=== PATIENT | male | born 1945 | race Caucasian/White ===

== ENCOUNTER 2024-11-03 08:49 | Outpatient (REF) | payer MEDICARE, SELFPAY ==
--- NOTE | ~2024-11-03 | XR_ITS ---
Exam: Three-view bilateral knee. INDICATION: Bilateral knee pain. No prior TECHNIQUE: AP, lateral, and sunrise views bilateral lower extremity joint FINDINGS: Left knee: Postoperative changes are consistent with tricompartment arthroplasty. Methacrylate stabilizes the femoral and tibial components. There is no abnormal lucency at the bone metal interfaces. There is no joint effusion. There is no periprostatic fracture. Right knee: Postoperative changes are consistent with tricompartment arthroplasty. Methacrylate stabilizes the femoral and tibial components. There is no abnormal lucency at the bone metal interfaces. There is no joint effusion. There is no periprostatic fracture. There are 2 foci of periosteal new bone formation lateral and posterior to the proximal diaphysis of the fibula Vascular calcification is evident in the proximal popliteal artery. XR/XR Knee Hubert 3V IMPRESSION: Unremarkable left knee status post 3 compartment knee arthroplasty. There are 2 areas of periosteal new bone formation along the posterior and lateral proximal diaphysis of the right fibula. This could be related to a stress fracture. Underlying aggressive lesion or less likely infection cannot be ruled out. Consider MRI or CT of the proximal lower leg for further characterization. Right knee 3 compartment arthroplasty without hardware abnormality. Electronically signed by: Trav Us MD 11/03/2024 12:55 PM EDT
--- OUTSIDE RECORDS SUMMARY | 2024-11-04 09:08 | XMS_ITS ---
Author Name [facility] Organization Unknown Encounters Encounter Type Encounter Reason Primary Diagnosis Location Date Ambulatory [facility] [place] 09/27/2022
== END 2024-11-03 08:50 | disposition home or self-care (01) ==
LOC: HO.HOSX 08:49
PROVIDERS: Visit Provider Orthopaedic Surgery
DX: M25.561 Pain in right knee (principal); M25.562 Pain in left knee
CPT/HCPCS: 73562; 99212

== ENCOUNTER 2024-11-03 10:54 | Outpatient (AMB) | payer MEDICARE, SELFPAY ==
--- NOTE | 2024-11-03 11:11 | A.OFFVIS_ITS ---
Vital Signs 11/03/24 11:19 Height 6 ft 2 in Weight 265 lb BMI 34.0 Intake Visit Reasons: Bilateral total knee arthroplasties, Left hip pain Intake Note: Rio is an 79 year old male who presents with complaints of progressively worsening left hip pain. The patient describes his pain as sharp and severe in nature. Most of the pain is located with in his left groin. The patient also reports instability in his left hip. He states that he has fallen several times because his left leg has given out. He has undergone bilateral total knee replacement surgeries in the past. He reports mild intermittent discomfort in both of his knees. He denies any fevers or chills. He has tried physical therapy exercises which aggravated his pain. He has also tried Tylenol and anti-inflammatory medicines which gave him minimal relief. Allergies No Known Allergies Allergy (Verified 11/03/24 11:15) Medication List - Last Reconciled 11/03/24 by Robert Bravo MD albuterol sulfate 90 mcg/actuation inhalation allopurinol 300 mg PO DAILY atorvastatin 20 mg PO DAILY indomethacin 50 mg PO TID losartan 50 mg PO DAILY [facility] Surgical History (Updated 11/03/24 @ 11:17 by CON Gould) History of knee replacement Social History (Updated 11/03/24 @ 11:18 by CON Gould) Patient Tobacco Use Status: Never used Tobacco Current occupational status: retired Physical Exam Vital Signs: BMI result Body Mass Index 34.0 Const Other: Well-nourished well-developed very friendly male awake alert and oriented x3 in no acute distress Extrem Other: Left hip examination shows decreased range of motion when compared to his right hip, pain with range of motion, no tenderness over his bursa Bilateral knee examination shows that the surgical incisions are well healed, no erythema, range of motion from -3 degrees to 115 degrees, his patellae track well Results Reviewed Results Reviewed: X-rays of the patient's bilateral knee show total knee arthroplasties in good position with no signs of loosening, no acute bony abnormalities X-rays of the patient's left hip taken previously show mild to moderate diffuse joint space narrowing, no acute bony abnormalities Assessment & Plan Assessment & Plan (1) Left hip pain: Code(s): M25.552 - Pain in left hip Category: Medical Plan Mr. 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 Thus, I will send the patient for an MRI of his left hip for further evaluation. I will see him back once the MRI is completed to discuss the findings and treatment options. Feel free to call me at any time should questions regarding his orthopedic management arise. Thank you very much for asking me to see this very friendly gentleman. I spent 20 minutes in reviewing the patient's records and imaging studies, seeing the patient and documenting in the medical record. Orders: Orders XR Knee Hubert 3V 11/03/24 M25.561 - Pain in right knee, M25.562 - Pain in left knee MR hip LT wo con 11/03/24 M25.552 - Pain in left hip Medications: New lorazepam (Ativan) Take one tab 2 hours before your MRI; take the second tab 30 minutes before your MRI. 1 mg PO ONCE 2 tabs 0RF anxiety Coding Level of Care Code Est Pt Level 3 (71783) Complex EM visit Add On G2211 Diagnoses Left hip pain M25.552
[2024-11-03 11:19] VITALS: BMI 34.0
--- OUTSIDE RECORDS SUMMARY | 2024-11-03 12:34 | XMS_ITS | Encounter Summary ---
Author Organization [facility] Address [address] [place] [address] Care Team Providers Care Hand Riveter Name Role Phone Manohar Zaragoza Primary Care Provider [phone] Encounter Details Date Type Department Care Team (Late Contact Info) Description 07/29/2024 Lab Requisition [facility] - Main Lab 299 [facility] [place] [phone] Francisco Wilson MD 100 [facility] 120 [place] [address] Benign essential microscopic hematuria Social History Tobacco Use Types Packs/Day Years Used Date Smoking Tobacco: Former Cigarettes Q uit: 06/03/1981 Smokeless Tobacco: Never Alcohol Use Standard Drinks/Week Comments Yes 0 (1 standard drink = 0.6 oz pur e alcohol) Sex and Gender Information Value Date Recorded Sex Assigned at Male 07/02/2024 10:45 AM EST Legal Sex Male 5:52 AM EST Gender Identity Male 07/02/2024 10:45 AM EST Sexual Orientation Not on file documented as of this encounter Plan of Treatment Upcoming Encounters Date Type Department Care Team (Late Contact Info) Description 11/04/2024 11:00 AM EDT Ancillary Procedure [facility] - [facility] 101 [address] [facility] 101 [place] [phone] 11/16/2024 1:15 PM EDT Office Visit Orthopedic Surgery - [place] 250 175 [facility] 250 [place] [phone] Michelet Stevenson, DPM [address] [facility] [address] [place] [address] 12/01/2024 11:00 AM EDT Office Visit Adult Medicine [facility] [address] [place], [place] [phone] Rosa Maria Lauren PA [address] [place], [place] documented as of this encounter Procedures Procedure Name Priority Date/Time Associated Diagnosis Comments AP OUTSIDE CONSULT Routine 07/28/2024 12 :00 AM EST Benign essential microscopic hematuria documented in this encounter Results * Anatomic pathology outside consult (07/28/2024 12:00 AM EST) Final Diagnosis A. Urine, Voided, ([id number]): Negative for high grade urothelial carcinoma. 08/06/2024 4:46 PM [facility] Clinical Information Benign essential microscopic hematuria R31.1 Urine cytology with reflex [facility]ion ([facility]) 08/06/2024 4:46 PM [facility] Gross Description A. Urine, Voided, ([id number]): Received is one ThinPrep slide for cytology. 08/06/2024 4:46 PM [facility] Disclaimer Unless otherwise specified, all tissue is 10% NB formalin fixed and paraffin embedded. Technical pathology services provided by [facility]rology at [address], [place] [address] (CLIA #[id number]/Sa zac Begum MD, Delivery Assistant) 08/06/2024 4:46 PM [facility] Tissue Urine specimen from urethra / Unknown 07/28/2024 07/29/2024 1:30 PM EST us Francisco Wilson MD LAB PATHOLOGY ORDERABLES Fi nal Result [facility] ([facility]) [facility] [address] [place] [address], documented in this encounter Visit Diagnoses Diagnosis Benign essential microscopic hematuria documented in this encounter Care Teams Hand Riveter Relationship Specialty Start Date End Date Manohar Zaragoza PA [address] [place] [address] PCP - General Internal Medicine 07/31/24 documented as of this encounter
== END 2024-11-03 11:44 | disposition home or self-care (01) ==
LOC: HO.HOS 10:58
PROVIDERS: PCP Physician Assistant Medical; Visit Provider Orthopaedic Surgery
DX: M25.552 Pain in left hip (principal)
CPT/HCPCS: 99213; G2211

== ENCOUNTER → 2024-11-03 10:59 | Outpatient (BNV) | payer MEDICARE, SELFPAY | PROVIDERS: Visit Provider Radiology Diagnostic Radiology | DX: M25.561 Pain in right knee (principal); M25.562 Pain in left knee; Z96.651 Presence of right artificial knee joint | CPT/HCPCS: 73562 ==

== ENCOUNTER 2024-11-25 12:55 | Outpatient (AMB) | payer MEDICARE, SELFPAY ==
--- NOTE | 2024-11-25 13:03 | MHC.OFFVIS ---
Intake Visit Reasons: OV-Lt hip MRI review, Low back pain radiating to left leg Intake Note: Rio is an 79 year old male who presents with complaints of progressively worsening low back pain which radiates down his left leg as well as intermittent left hip pain. The patient states that his symptoms have gotten worse over the last year. He also reports intermittent weakness in his left leg. He states that he has fallen on several occasions because of the weakness. He has done physical therapy exercises which aggravated his pain. He has also tried Tylenol and anti-inflammatory medicines which gave him minimal relief. Allergies No Known Allergies Allergy (Verified 11/25/24 13:05) Medication List - Last Reconciled 11/25/24 by Robert Bravo MD albuterol sulfate 90 mcg/actuation inhalation allopurinol 300 mg PO DAILY atorvastatin 20 mg PO DAILY indomethacin 50 mg PO TID lorazepam (Ativan) 1 mg PO ONCE losartan 50 mg PO DAILY [facility] Surgical History History of knee replacement Social History (Updated 11/03/24 @ 11:18 by CON Gould) Patient Tobacco Use Status: Never used Tobacco Current occupational status: retired Physical Exam Back/Spine/Pelvis Other: Low back examination shows left-sided paraspinal muscle tenderness, pain with range of motion, positive straight leg raise test on the left at 70 degrees, 4/5 strength with testing of his left hip flexors and knee extensors when compared to 5/5 strength on his right side Extrem Other: Left hip examination shows slightly decreased range of motion when compared to his right hip, mild tenderness over his bursa, no overlying skin lesions Results Reviewed Results Reviewed: X-rays of the patient's lumbar spine taken previously show diffuse degenerative disc disease, no acute bony abnormalities MRI of the patient's left hip shows mild degenerative changes, no evidence of avascular necrosis, no acute bony abnormalities Assessment & Plan Assessment & Plan (1) Low back pain radiating to left leg: Code(s): M54.50 - Low back pain, unspecified; M79.605 - Pain in left leg Category: Medical Plan Mr. Meraz presents with progressively worsening low back pain which radiates down his left leg as well as associated left leg weakness possibly due to lumbar stenosis or a disc herniation. Thus, I will send the patient for an MRI of his lumbar spine for further evaluation. I will contact him by phone once the MRI results are available. He will call me prior to that time should his symptoms worsen in any way. Feel free to call me at time should questions regarding his orthopedic management arise. I spent 21 minutes in reviewing the patient's records and imaging studies, seeing the patient and documenting in the medical record. Orders: Orders MR lumbar spine wo con Today M54.50 - Low back pain, unspecified, M79.605 - Pain in left leg Coding Level of Care Code Est Pt Level 3 (07089) Complex EM visit Add On G2211 Diagnoses Low back pain radiating to left leg M54.50; M79.605
--- OUTSIDE RECORDS SUMMARY | 2024-11-25 15:04 | XMS_ITS | Encounter Summary ---
Author Organization [facility] Address [address] [place] [address] Care Team Providers Care Franchise Field Consultant Name Role Phone Manohar Zaragoza Primary Care Provider [phone] Encounter Details Date Type Department Care Team (Late st Contact Info) Description 07/29/[address] [facility] - Main Lab [address] [facility] [place] [phone] Francisco Wilson MD [address] [place] [address] Benign essential microscopic hematuria Social History Tobacco [...] Department Care Team (Late Contact Info) Description 12/01/2024 11:00 AM EDT Office Visit Adult Medicine [address] [phone] Rosa Maria Lauren PA [address] [place], [place] 12/23/2024 2:15 PM EDT Office Visit Orthopedic Surgery - [place] 250 175 [facility] [address] [place] [phone] Michelet Stevenson, DPM 175 [facility] 250 [place] [address] 11/01/2025 11:00 AM EDT Ancillary Procedure [facility] - [facility] [address] [place] [phone] documented as of this encounter Procedures Procedure Name Priority Date/Time Associated Diagnosis Comments AP OUTSIDE CONSULT Routine 07/28/2024 12 :00 AM EST Benign essential microscopic hematuria documented in this encounter Results * Anatomic pathology outside consult (07/28/2024 12:00 AM EST) Final Diagnosis A. Urine, Voided, ([id number]): Negative for high grade urothelial carcinoma. 08/06/2024 4:46 PM [facility] Clinical Information Benign essential microscopic hematuria R31.1 Urine cytology with reflex UroVysion ([facility]) 08/06/2024 4:46 PM [facility] Gross Description A. Urine, Voided, ([id number]): Received is one ThinPrep slide for cytology. 08/06/2024 4:46 PM [facility] Disclaimer Unless otherwise specified, all tissue is 10% NB formalin fixed and paraffin embedded. Technical pathology services provided by [facility] at [address], [place] [address] (CLIA #[id number]/Sa zac Begum MD, Seismic Plotter) 08/06/2024 4:46 PM [facility] Tissue Urine specimen from urethra / Unknown 07/28/2024 07/29/2024 1:30 PM EST us Francisco Wilson MD LAB PATHOLOGY ORDERABLES Fi nal Result [facility] ([facility]) [facility] [address] [place] [address], documented in this encounter Visit Diagnoses Diagnosis Benign essential microscopic hematuria documented in this encounter Care Teams Franchise Field Consultant Relationship Specialty Start Date End Date Manohar Zaragoza PA [address] [place] [address] PCP - General Internal Medicine 07/31/24 documented as of this encounter
== END 2024-11-25 13:16 | disposition home or self-care (01) ==
LOC: HO.HOS 12:56
PROVIDERS: Visit Provider Orthopaedic Surgery
DX: M54.50 Low back pain, unspecified (principal); M79.605 Pain in left leg
CPT/HCPCS: 99213; G2211

== ENCOUNTER → 2024-11-25 12:55 | Outpatient (BNVA) | payer MEDICARE, SELFPAY | PROVIDERS: Visit Provider Orthopaedic Surgery | DX: M79.605 Pain in left leg (principal); M54.50 Low back pain, unspecified | CPT/HCPCS: 99212 ==

== ENCOUNTER 2024-12-31 09:31 | Outpatient (AMB) | payer MEDICARE, SELFPAY ==
--- NOTE | 2024-12-31 09:37 | A.OFFVIS_ITS ---
Intake Visit Reasons: OV- Lumbar Spine MRI review Intake Note: Rio is an 79 year old male who presents with complaints of progressively worsening low back pain which radiates down his left leg as well as intermittent left hip pain. The patient states that his symptoms have gotten worse over the last year. He also reports intermittent weakness in his left leg. He states that he has fallen on several occasions because of the weakness. He has done physical therapy exercises which aggravated his pain. He has also tried Tylenol and anti-inflammatory medicines which gave him minimal relief. The patient states that he has only mild discomfort at rest. The patient's states that he appears to lose his balance when he is walking. The patient's also states that he reports severe pain in his low back after activities such as mowing the lawn. Inspector Mechanical Required: No Accompanied by: Spouse Allergies No Known Allergies Allergy (Verified 12/31/24 09:42) Medication List - Last Reconciled 12/31/24 by Francesca Landon RN albuterol sulfate 90 mcg/actuation inhalation allopurinol 300 mg PO DAILY atorvastatin 20 mg PO DAILY indomethacin 50 mg PO TID lorazepam (Ativan) 1 mg PO ONCE losartan 50 mg PO DAILY [facility] Surgical History History of knee replacement Social History (Updated 11/03/24 @ 11:18 by CON Gould) Patient Tobacco Use Status: Never used Tobacco Current occupational status: retired Physical Exam Back/Spine/Pelvis Other: Low back examination shows left-sided paraspinal muscle tenderness, pain with range of motion, positive straight leg raise test on the left at 70 degrees Results Reviewed Results Reviewed: MRI of the patient's lumbar spine shows ?severe L3-4, L4-5 spinal stenosis due to bulging discs, ligamentous hypertrophy and facet overgrowth MRI of the patient's left hip taken previously shows mild diffuse degenerative changes, no acute bony abnormalities Assessment & Plan Assessment & Plan (1) Low back pain radiating to left leg: Code(s): M54.50 - Low back pain, unspecified; M79.605 - Pain in left leg Category: Medical Plan Mr. Meraz presents with progressively worsening low back pain which radiates into his left leg due to lumbar stenosis. He also has left hip pain but his left hip MRI shows only mild degenerative changes. I do not feel that hip surgery is indicated. Most of the patient's symptoms including his weakness and recent falls are most likely due to lumbar spine pathology. Thus, I will have the patient evaluated in our neurosurgery department. He will contact me prior to that appointment should his symptoms worsen in any way. I spent 22 minutes in reviewing the patient's records and imaging studies, seeing the patient and documenting in the medical record. Orders: Referrals Neuro Spine Referral M54.50 - Low back pain, unspecified, M79.605 - Pain in left leg Coding Level of Care Code Est Pt Level 3 (64290) Complex EM visit Add On G2211 Diagnoses Low back pain radiating to left leg M54.50; M79.605
--- OUTSIDE RECORDS SUMMARY | 2024-12-31 09:54 | XMS_ITS | Clinical Summary ---
Author Organization [facility] Address [address] [place] [address] Care Team Providers Care Substance Abuse Rn Name Role Phone Tammie Crystal MD Primary Care Provider [phone] Allergies No known active allergies Medications Medication Sig Dispensed Refills Start Date End Date Status allopurinol (ZYLOPRIM) 300 MG tablet Take 300 mg by mouth daily. 3 04/03/2019 Active atorvastatin (LIPITOR) tablet 20 mg TAKE 1 TABLET BY MOUTH EVERY DAY 0 04/06/2019 Active metoprolol succinate (TOPROL-XL) 24 hr tablet 25 mg Take 25 mg by mouth daily. 11 04/03/2019 Active Multiple Vitamins-Minerals (CENTRUM SILVER 50+MEN PO) Take by mouth. 0 Active Misc Natural Products (OSTEO BI-FLEX JOINT SHIELD PO) Take by mouth. 0 Active Fluticasone Furoate (ARNUITY ELLIPTA) 100 MCG/ACT AEPB Inhale 1 puff into the lungs. 0 08/14/2019 Active enoxaparin (LOVENOX) 40 MG/0.4ML SOLN Inject 0.4 mL (40 mg total) under the skin daily. 7 Syringe 1 11/30/2019 Active celecoxib (CeleBREX) 200 MG capsule Take 1 capsule (200 mg total) by mouth daily. 30 capsule 1 12/11/2019 Active albuterol (PROVENTIL HFA;VENTOLIN HFA) 108 (90 Base) MCG/ACT inhaler Inhale 2 puffs into the lungs. 0 08/14/2019 Active enoxaparin (Lovenox) 40 MG/0.4ML SOLN Inject 0.4 ml (40 mg) each morning until told to stop by surgeon 14 Syringe 1 05/10/2020 Active oxyCODONE-acetamin ophen (Percocet) 5-325 MG per tablet Take 1-2 tabs p.o. every 4 to 6 hours as needed for pain. May fill for lesser quantity. 30 tablet 0 06/14/2020 Active sulfamethoxazole-t rimethoprim (Bactrim DS) 800-160 MG per tablet Take 1 tab 2 times daily for 10 days 20 tablet 0 07/08/2020 Active atorvastatin (LIPITOR) tablet 20 mg Take 20 mg by mouth. 0 07/20/2020 Active amoxicillin (AMOXIL) 500 MG tablet Take 4 tabs 1 hour prior to dental appointment 20 tablet 3 06/30/2021 Active Acetaminophen Extra Strength 500 MG tablet TAKE 1 TABLET BY MOUTH THREE TIMES A DAY FOR PAIN 0 09/07/2021 Active aspirin 81 MG EC tablet Take 81 mg by mouth. 0 Active indomethacin (INDOCIN) 50 MG capsule Take 50 mg by mouth. 0 08/23/2021 Active Active Problems Problem Noted Date Diagnosed Date Arthritis of knee, right 04/15/2019 Arthritis of knee, left 04/15/2019 Resolved Problems Problem Noted Date Diagnosed Date Resolved Date Cellulitis of right knee 07/08/202005/2021 Family History Medical History Relation Name Comments Cancer Father Cancer Sister Relation Name Status Comments Father Sister Social History Tobacco Use Types Packs/Day Years Used Date Smoking Tobacco: Former Smokeless Tobacco: Never Alcohol Use Standard Drinks/Week Comments Yes 2 (1 standard drink = 0.6 oz pur e alcohol) Sex and Gender Information Value Date Recorded Sex Assigned at Not on file Gender Identity Not on file Sexual Orientation Not on file Job Start Date Occupation Industry Not on file Not on file Not on file Last Filed Vital Signs Vital Sign Reading Time Taken Comments Blood Pressure - - Pulse - - Temperature - - Respiratory Rate - - Oxygen Saturation - - Inhaled Oxygen Concentration - - Weight 117 kg (258 lb) 11/12/2019 10:00 AM EDT Height 182.9 cm (6') 11/12/2019 10:00 AM EDT Body Mass Index 34.99 11/12/2019 10:00 AM EDT Plan of Treatment Health Maintenance Due Date Last Done Comments Depression Screening 1957 BMI Counseling 10/21/1961 Preventative Health Evaluation 10/21/1961 DTap / Tdap / Td (1 - Tdap) 10/21/1962 Shingrix-Zoster Vaccine (1 of 2) 10/21/1993 Fall Risk Assessment 10/21/2008 RSV Adult > 60+ Yrs or (1 - 1-dose 75+ series) 10/21/2018 COVID-19 Vaccine ( season) 2024 04/24/2021, 09/16/2020, 08/24/2020 Influenza Vaccine (#1) 2025 , 02/22/2020, 03/17/2019, Additional history exists Pneumococcal Vaccine Completed 03/05/2016, 04/22/20 13 Hepatitis B Vaccines Aged Out No long er eligible based on patient's age to complete this topic RSV Ped < 20 months Aged Out No longe r eligible based on patient's age to complete this topic Care Teams Substance Abuse Rn Relationship Specialty Start Date End Date Tammie Crystal MD [address] [place] [address] PCP - General Internal Medicine 06/15/21
--- OUTSIDE RECORDS SUMMARY | 2024-12-31 09:54 | XMS_ITS ---
Author Name [facility] Organization Unknown Encounters Encounter Type Encounter Reason Primary Diagnosis Location Date Ambulatory [facility] [place] 09/27/2022 Care Team Organization Name Specialty Phone Email Start Date End Da te [facility] Manohar Zaragoza Primary Care 08/08/2022 [facility] Jorge Benavides Primary Care 04/10/202201/01
--- OUTSIDE RECORDS SUMMARY | 2024-12-31 09:54 | XMS_ITS | Clinical Summary ---
Author Organization [address] [place] [address] [place] [phone] Phone Care Team Providers Care [employer]orer [employer] Name Role Phone Manohar Zaragoza Primary Care Provider [phone] Allergies No known active allergies Medications amoxicillin (AMOXIL) 500 mg capsule TAKE 4 TABLETS 1 HOURS PRIOR TO APPOINTMENT 4 Active aspirin 81 mg EC tablet Take 1 tablet (81 mg total) by mouth 1 (one) time each day. Active glucosamine/víctor dr shanika Gordon sod (OSTEO BI-FLEX ORAL) Take 1 Tablet by mouth daily Active albuterol HFA (PROAIR HFA ; PROVENTIL HFA ; VENTOLIN HFA) 90 mcg/actuation inhaler INHALE 2 PUFFS INTO THE LUNGS EVERY 6 HOURS NEEDED FOR COUGH OR WHEEZING. 18 each 5 Active indomethacin (INDOCIN) 50 mg capsule Take 1 capsule (50 mg total) by mouth 3 (three) times a day with meals. 90 capsule 3 5 Active losartan (Cozaar) 50 mg tablet Take 1 tablet (50 mg total) by mouth 1 (one) time each day. 30 each 5 Active cholecalciferol (VITAMIN D-3) 25 mcg (1,000 unit) tablet Take 1 tablet (1,000 Units total) by mouth 1 (one) time each day. Active allopurinoL (ZYLOPRIM) 300 mg tablet TAKE 1 TABLET BY MOUTH 1 TIME EACH DAY. 90 tablet 1 5 Active atorvastatin (LIPITOR) 20 mg tabletIndication s:Gout, unspecified,Hype rlipidemia, unspecified TAKE 1 TABLET BY MOUTH EVERY DAY 90 tablet 3 5 Active Active Problems Problem Noted Date Diagnosed Date Acquired hallux valgus of right foot 12/23/2024 Hallux rigidus of right foot 12/23/2024 Primary hypertension 07/31/2024 Status post bilateral knee replacements 10/05/19 23 Right carpal tunnel syndrome 06/20/2021 Trigger finger, right ring finger 06/20/2021 Basal cell carcinoma (BCC) o f skin of left eyelid including canthus 05/23/2020 Asthma 07/24/2019 Aortic aneurysm, thoracic (CMS/HCC V24) 05/08/20 19 Frequent PVCs 05/08/2019 Arthritis of knee, left 04/15/2019 Arthritis of knee, right 04/15/2019 Elevated LFTs 04/06/2019 Primary osteoarthritis of both knees 04/24/2017 Actinic keratoses 04/11/2017 Overview (04/24/2024): Actinic keratoses 04/19 right earlobe ... nose (atypical squamous proliferation) Lumbar radiculopathy 03/05/2016 Diverticulitis of colon without hemorrhage 08/29 Overview (04/24/2024): Incidental finding at colonoscopy 08/30/2011. Hyperlipidemia 09/17/2010 Tinnitus 09/15/2010 Rosacea 03/02/2010 Gout 04/22/2006 Overview (04/24/2024): On allopurinol since ~ 2009 Encounters Date Type Department Care Team Description 12/23/2024 2:15 PM EDT Office Visit [facility] [place] [address] [place] [phone] Michelet Stevenson, DPM Acquired hallux valgus of right foot (Primary Dx); Follow-up exam; Hallux rigidus of right foot 12/01/2024 11:15 AM EDT - 12/01/2024 11:59 PM EDT Hospital Encounter Radiology Department [address] [phone] Right leg pain Discharge Disposition: Home or Self Care 12/01/2024 11:00 AM EDT Office Visit Adult Medicine [facility] [address] [place] [phone] Rosa Maria Lauren PA Mild persistent asthma without complication (Primary Dx); Right leg pain; Thrombophlebitis of superficial veins of right lower extremity 11/16/2024 1:15 PM EDT Office Visit [facility] - [place] 250 175 [facility] [address] [place] [phone] Michelet Stevenson, DPM Acquired hallux valgus of right foot (Primary Dx); [place] of foot; Hallux rigidus of right foot 11/04/2024 11:00 AM EDT Ancillary Procedure [facility] 101 [address] [facility] 101 [place] [phone] Thoracic aortic aneurysm without rupture, unspecified part ([facility] V24) from Last 3 Months Immunizations Name Administration Dates Next Due Influenza trivalent, 0.5mL ( Fluad) 65yo and older 03/11/2023,02/27/2022,02/22/2021,02/21,03/17/2019,02/25/2018,03/10/2017 ,03/05/2016 Influenza trivalent, 0.5mL, preservative free (Fluarix; FluLaval; Fluzone) ages 6mo and older (Afluria) 3 years and older 03/06/2015,03/19/2014,03/11/2013,05/07,07/03/2011 ebindle SARS-CoV-2 COVID-19, mRNA, LNP-S, preservative free 04/24/2021,09/16/2020,08/24/2020 Pneumococcal conjugate 13 va lent (Prevnar 13, PCV13) 2mo and older 03/05/2016 Pneumococcal polysaccharide 23 valent (Pneumovax 23) 2yo and older 04/22/2013 Td Tetanus diptheria (Tdvax) 7yo and older 04/22/2013 Zoster Live 03/11/2013 Surgical History Surgery Date Site/Laterality Comments PROSTATECTOMY 2002 PROCEDURE: PROSTATECTOMY; COMMENT: prostate cancer COLONOSCOPY 10/15/2000 PROCEDURE: VA COLONOSCOPY STOMA DX INCLUDING COLLJ SPEC SPX; COMMENT: normal ESOPHAGOGASTRODUODENOSCOPY 02/22/2003 PROCEDURE: VA ESOPHAGOGASTRODUODENOSCOPY TRANSORAL DIAGNOSTIC; COMMENT: normal COLONOSCOPY 08/30/2011 PROCEDURE: VA COLONOSCOPY FLX DX W/COLLJ SPEC WHEN PFRMD; COMMENT: minimal diverticulosis TONSILLECTOMY PROCEDURE: HISTORICAL TONSILLECTOMY CATARACT EXTRACTION PROCEDURE: HISTORICAL CATARACT REMOVAL OTHER SURGICAL HISTORY PROCEDURE: HISTORY OTHER; COMMENT: eye lid surgery TOTAL KNEE ARTHROPLASTY 11/2019 Bilateral PROCEDURE: VA ARTHRP KNE CONDYLE&PLATU MEDIAL&LAT COMPARTMENTS; COMMENT: left TKR - dr. gallo OTHER SURGICAL HISTORY PROCEDURE: HISTORICAL CA BASAL CELL; COMMENT: BCC 04/22 nose (nodular) Medical History Medical History Date Comments Gout, unspecified 04/22/2006 DX:Gout, unspe cified Hyperlipidemia 09/17/2010 DX:Hyperlipidemi a Diverticulosis of colon (wit hout mention of hemorrhage) 08/30/2011 DX:Diverticulosis of colon ( without mention of hemorrhage) History of prostate cancer 08/21/2007 DX:Hi story of prostate cancer; COMMENT: Total prostatectomy approx 2002 Actinic keratoses 04/11/2017 DX:Actinic ker atoses History of basal cell carcinoma 04/14/2020 DX:History of basal cell carcinoma; COMMENT: BCC 04/22 nose (nodular) Essential hypertension DX:Essent ial hypertension Family History Medical History Relation Name Comments Arthritis Brother Arthritis Father gout Colon cancer Father rectal cancer d ied 75 Other: old age Mother 90 Coronary artery disease Neg Hx Diabetes Neg Hx Hypertension Neg Hx Relation Name Status Comments Brother ? aneurysm Father (Age 75) ? rectal c ancer Mother (Age 90's) Sister breast cancer Social History Tobacco Use Types Packs/Day Years Used Date Smoking Tobacco: Former Cigarettes Q uit: 06/03/1981 Smokeless Tobacco: Never Alcohol Use Standard Drinks/Week Comments Yes 0 (1 standard drink = 0.6 oz pur e alcohol) Housing Instability Answer Date Recorde d Are you worried that in the next 2 months you may not have stable housing? No 08/28/2024 Food Access & Nutrition Answer Date Rec orded Do you have access to a vari ety of food including fruits and vegetables? No 08/28/2024 Access to Healthcare Answer Date Record ed Within the last 3 months, ho w many times did you visit the emergency department for your medical care? 0 08/28/2024 Health Literacy Answer Date Recorded How often do you need to hav e someone help you when you read instructions, pamphlets, or other written material from your doctor or pharmacy? Never 08/28/2024 Caregiver: How often do you need to have someone help you when you read instructions, pamphlets, or other written material from your doctor or pharmacy? Not on file 08/28/2024 Financial Risk Answer Date Recorded How hard is it for you to pa y for the very basics like food, housing, medical care, and air conditioning / heating? Not very hard 08/28/2024 Transportation Answer Date Recorded Has the lack of transportati on kept you from meetings, work, or from getting things needed for daily living? No Has the lack of transportati on kept you from medical appointments or from getting medications? No 08/28/2024 Social Isolation Answer Date Recorded How often do you feel lonely or isolated from th ose around you? Never 08/28/2024 Food Risk Answer Date Recorded Within the past 12 months we worried whether our food would run out before we got money to buy more. Never true 08/28/2024 Within the past 12 months th e food we bought just didn't last and we didn't have money to get more. Never true 08/28/2024 Dependent Care Answer Date Recorded Do you need help finding or paying for care for your loved ones. For example, childcare attendant or elderly care for an older adult? No 08/28/2024 Education Answer Date Recorded Do you think completing more education or training, like finishing a GED, going to college, or learning a trade, would be helpful for you? No 08/28/2024 Employment and Income Answer Date Recor ded During the last four weeks, have you been actively looking for work? No 08/28/2024 Living Situation Answer Date Recorded What is your living situation? 0 08/28/2024 Sex and Gender Information Value Date Recorded Sex Assigned at Male 07/02/2024 10:45 AM EST Legal Sex Male 5:52 AM EST Gender Identity Male 07/02/2024 10:45 AM EST Sexual Orientation Not on file Obstetrics History Last Filed Vital Signs Vital Sign Reading Time Taken Comments Blood Pressure 127/78 12/01/2024 10:52 AM EDT Pulse 60 12/01/2024 10:52 AM EDT Temperature 36.6 C (97.8 F) 12/01/2024 10:52 AM EDT Respiratory Rate 14 12/01/2024 10:52 AM EDT Oxygen Saturation 96% 12/01/2024 10:52 AM EDT Inhaled Oxygen Concentration - - Weight 114 kg (251 lb) 12/23/2024 2:17 PM EDT Height 188 cm (6' 2.02 ) 12/23/2024 2:17 PM EDT Body Mass Index 32.21 12/23/2024 2:17 PM EDT Plan of Treatment Upcoming Encounters Date Type Department Care Team (Late st Contact Info) Description 02/22/2025 10:00 AM EDT Consult Adult Medicine [facility] [address] [place] [phone] Manohar Zaragoza PA [address] [place] [address] 03/01/2025 8:00 AM EDT Consult Orthopedic Surgery [place] [address] [phone] Michelet Stevenson DPM [address] [address] 03/05/2025 10:00 AM EDT Hospital Encounter [facility] OR [address] [place] [phone] Michelet Stevenson DPM [address] [address] 03/05/2025 10:00 AM EDT - 03/05/2025 12:00 PM EDT Surgery [facility] OR [address] [place] [phone] Michelet Stevenson DPM [address] [address] RIGHT BUNIONECTOMY [94911 (CPT )] 03/18/2025 8:45 AM EDT Office Visit [facility] Surgery - [place] 250 175 [facility] [address] [place] [phone] Michelet Stevenson, DPM 175 [facility] [address] [place] [address] 11/01/2025 11:00 AM EDT Ancillary Procedure [facility] 101 [address] [facility] 101 [place] [phone] Scheduled Procedures Name Priority Associated Diagnoses Date/Ti me BUNIONECTOMY Acquired hallux valgus of right foot Hallux rigidus of right foot 03/05/2025 10:00 AM EDT Health Maintenance Due Date Last Done Comments Zoster Vaccines (1 of 2) 05/06/2013 03/11/2013 RSV Immunization Adult Patients (1 - 1-dose 75+ series) 10/21/2018 Medicare Annual Wellness Visit 05/10/2022 DTaP,Tdap,and Td Vaccines (2 - Td or Tdap) 04/22/2023 04/22/2013 COVID-19 Vaccine ( season) 2024 03/11/2023, 02/27/2022, 04/24/2021, Additional history exists Hypertension/CHF/CAD Annual BMP Blood Test 08/10/2025 08/10/2024, 10/31/2023, 10/31/2023 Falls Risk Assessment 08/28/2025 08/28/2024 Social Influencers of Health Screening 08/28/2025 08/28/2024 Cholesterol Screening (Lipid Panel) 08/10/2029 08/10/2024, 10/31/2023, 10/31/2023 Pneumococcal Vaccine: 50+ Years Completed 03/05/2016, 04/22/2013 Influenza Vaccine Discontinued 03/11/2023, , 02/22/2021, Additional history exists Depression Screening Completed 08/28/2024 HIB Vaccines Aged Out No longer eligi ble based on patient's age to complete this topic HPV Vaccines Aged Out No longer eligi ble based on patient's age to complete this topic Hepatitis A Vaccines Aged Out No long er eligible based on patient's age to complete this topic Hepatitis B Vaccines Aged Out No long er eligible based on patient's age to complete this topic IPV Vaccines Aged Out No longer eligi ble based on patient's age to complete this topic MMR Vaccines Aged Out No longer eligi ble based on patient's age to complete this topic Meningococcal ACWY Vaccine Aged Out N o longer eligible based on patient's age to complete this topic Meningococcal B Vaccine Aged Out No l onger eligible based on patient's age to complete this topic RSV Immunization Patients Under 20 months Aged Out No longer eligible based on patient's age to complete this topic Varicella Vaccines Aged Out No longer eligible based on patient's age to complete this topic Procedures Procedure Name Priority Date/Time Associated Diagnosis Comments XR FOOT 3+ VIEWS RIGHT Routine 2:47 PM EDT Follow-up exam VAS US DUPLEX LOWER EXT VENOUS RIGHT STAT 12/01/2024 11:45 AM EDT Right leg pain INJECTION TENDON OR LIGAMENT Routine 11/16/2024 1:15 PM EDT Acquired hallux valgus of right foot Hallux rigidus of right foot TRANSTHORACIC ECHOCARDIOGRAM (TTE) COMPLETE W/ BUBBLE STUDY Routine 11/04/2024 11:45 AM EDT Thoracic aortic aneurysm without rupture, unspecified part ([facility] V24) COMPREHENSIVE METABOLIC PANEL Routine 08/10/2024 9:00 AM EDT Wheeze Aneurysm of ascending aorta without rupture ([facility] V24) Uncomplicated asthma, unspecified asthma severity, unspecified whether persistent Other hyperlipidemia Gout, unspecified cause, unspecified chronicity, unspecified site LIPID PANEL WITH REFLEX TO DIRECT LDL Routine 08/10/2024 9:00 AM EDT Wheeze Aneurysm of ascending aorta without rupture ([facility] V24) Uncomplicated asthma, unspecified asthma severity, unspecified whether persistent Other hyperlipidemia Gout, unspecified cause, unspecified chronicity, unspecified site from Last 3 Months or Most Recently Relevant to Health Maintenance Results * XR Foot 3+ Views Right (12/23/2024 2:47 PM EDT) Anatomical Region Laterality Modality Lower Extremities, Foot Right Computed Radiography Narrative 12/23/2024 5:22 PM EDT Right foot 3 views No fracture. No radiopaque foreign joint spaces Arthritis mild moderate mild bunion deformity with increased medial eminence Foot position Pes planus with Talus navicular uncovering decreased calcaneal inclination anterior displaced symes line talus navicular joint to calcaneal cuboid joint us Michelet Stevenson DPSherry IMG XR PROCEDURES Final R esult * Vascular US duplex lower extremity venous right (12/01/2024 11:45 AM EDT) Anatomical Region Laterality Modality Vascular, Abdomen Ultrasound 12/01/2024 12:0 0 PM EDT Impressions 12/01/2024 12:02 PM EDT 1. No deep venous thrombosis in the right femoropopliteal system. 4. Superficial thrombophlebitis of the upper calf -------- FINAL REPORT -------- Dictated By: Clay Blue Dictated Date: 12/01/2024 12:00 ET Assigned Physician: Clay Blue Reviewed and Electronically Signed By: Clay Blue Signed Date: 12/01/2024 12:02 ET Workstation ID: [id number] Transcribed By: Self Edit Transcribed Date: 12/01/2024 12:00 ET Narrative 12/01/2024 12:02 PM EDT EXAM: Venous Doppler unilateral, right INDICATIONS: Pain TECHNIQUE: Duplex venous evaluation of the lower extremity was performed utilizing graded compression, color and spectral Doppler interrogation. COMPARISON: None FINDINGS: There is normal morphology, compressibility, Doppler flow, and augmentation of the right common femoral, superficial femoral, and popliteal veins. The posterior tibial vein demonstrates patency. Peroneal vein demonstrates color flow There is hypoechoic noncompressible thrombus within the superficial vein of the upper calf. Procedure Note Clay Blue MD - 12/01/2024 EXAM: Venous Doppler unilateral, right INDICATIONS: Pain TECHNIQUE: Duplex venous evaluation of the lower extremity was performedutilizing graded compression, color and spectral Doppler interrogation. COMPARISON: None FINDINGS: There is normal morphology, compressibility, Doppler flow, andaugmentation of the right common femoral, superficial femoral, andpopliteal veins. The posterior tibial vein demonstrates patency. Peronealvein demonstrates color flow There is hypoechoic noncompressible thrombus within the superficial veinof the upper calf. IMPRESSION: 1. No deep venous thrombosis in the right femoropopliteal system. 4. Superficial thrombophlebitis of the upper calf -------- FINAL REPORT -------- Dictated By: Clay Blue Dictated Date: 12/01/2024 12:00 ET Assigned Physician: Clay Blue Reviewed and Electronically Signed By: Clay Blue Signed Date: 12/01/2024 12:02 ET Workstation ID: [id number] Transcribed By: Self Edit Transcribed Date: 12/01/2024 12:00 ET us Rosa Maria Leonidas PA CV VASCULAR PROCEDURES Final Res ult * Injection tendon or ligament (11/16/2024 1:15 PM EDT) Michelet Frances DPM - 11/16/2024 1:15 PM EDT Michelet Stevenson DPM 11/16/2024 7:02 PM Injection tendon or ligament Indications: pain Details: 25 G needle Medications: 0.5 mL lidocaine (PF) 1 %; 20 mg triamcinolone acetonide 40 mg/mL Informed Consent: Site: Foot ligament tendon us Michelet Stevenson DPM IN CLINIC/BEDSIDE ORDERAB LES Final Result * (ABNORMAL) TRANSTHORACIC ECHOCARDIOGRAM (TTE) COMPLETE W/ BUBBLE STUDY (11/04/2024 11:45 AM EDT) Left Atrium Minor Rusk 5.8 cm CV PACS Left Atrium Major Rusk 5.8 cm CV PACS LA Area Sys (A2C) 22 cm2 CV PACS LA Area Sys (A4C) 21 cm2 CV PACS LA Volume (BP) 65 mL CV PACS RA Area 18.6 cm2 CV PACS RA 2D Volume 53 mL CV PACS AV Mean Gradient 10 mmHg CV PACS Ao VTI 47.0 cm CV PACS AV Peak Zackery 1.9 m/s CV PACS AV Peak Gradient 20 mmHg CV PACS AV Area Continuity Equation 2.0 cm2 CV PACS AV Area Peak Velocity 2.1 cm2 CV PACS Aortic Sinus Valsalva 3.8 cm CV PACS Ascending Aorta 4.1 cm CV PACS IVSD 1.2(A) 0.6 - 1.0 cm CV PACS LVIDD 5.3 4.2 - 5.8 cm CV PACS LVIDS 3.2 2.5 - 4.0 cm CV PACS LVOT Diameter 2.2 cm CV PACS LVOT Mean Zackery 0.7 m/s CV PACS LVOT Mean Grad 2 mmHg CV PACS LVOT Peak VTI 25.0 cm CV PACS LVOT Peak Zackery 1.2 m/s CV PACS LVOT Peak Gradient 5 mmHg CV PACS LVPWD 1.2(A) 0.6 - 1.0 cm CV PACS MV E' Tissue Velocity Lateral 7 cm/s CV PACS MV E' Tissue Velocity Septal 7 cm/s CV PACS LVOT Area 3.8 cm2 CV PACS LVOT Stroke Volume 95 mL CV PACS MV Deceleration Shannon 3.2 m/s2 CV PACS E Wave Deceleration Time 295(A) 119 - 242 ms CV PACS MV PHT 86 ms CV PACS MV Peak A Zackery 1.00 m/s CV PACS MV Peak E Zackery 0.90 m/s CV PACS MV Area PHT 2.6 cm2 CV PACS PV Acceleration Time 85 ms CV PACS PV Peak Velocity 1.2 m/s CV PACS PV Peak Gradient 5 mmHg CV PACS RV Diastolic Basal Dimension 3.9 2.5 - 4.1 cm CV PACS TAPSE 31 mm CV PACS TR Peak Velocity 2.70 m/s CV PACS TR Peak Gradient 30 mmHg CV PACS E/E' Ratio Septal 13 CV PACS E/E' Ratio Averaged 13 CV PACS LVOT Stroke Index 0 mL/m2 CV PACS Relative Wall Thickness ratio 0.45(A) 0.24 - 0.42 CV PACS LVOT:AV VTI Index 0.53 CV PACS FS 40 % CV PACS LV Mass 2D 265(A) 96 - 200 g CV PACS Ascending Aorta Index 1.70 cm/m2 CV PACS LVOT flow 266 mL/s CV PACS RA 2D Volume Index 22 18 - 32 mL/m2 CV PACS KHALIDA Index (VTI) 0.84 cm2/m2 CV PACS KHALIDA Index (Pk Zackery) 0.87 cm2/m2 CV PACS LVIDD Index 2.20 cm/m2 CV PACS LVIDS Index 1.33 cm/m2 CV PACS AV Velocity Ratio 0.50 CV PACS E/A Ratio 0.9 0.8 - 2.0 CV PACS E/E' Ratio Lateral 13 CV PACS LA Volume Index (BP) 26 mL/m2 CV PACS LV Mass Index 2D 106 50 - 102 g/m2 CV PACS BSA 2.46 m2 CV PACS RA Major Rusk 5.1 cm CV PACS RA Major Rusk Index 2.1 2.1 - 2.7 cm/m2 CV PACS AV Area 2D 1.9 cm2 CV PACS KHALIDA Index (2D) 0.79 cm2/m2 CV PACS AV Area Index 0.8 CV PACS Anatomical Region Laterality Modality Ultrasound Narrative 11/05/2024 4:26 PM EDT Left ventricle cavity size is normal. There is mild, concentric LV hypertrophy. There is normal left ventricular regional wall motion. Left ventricular systolic function is hyperdynamic with an ejection fraction over 70%. Right ventricle cavity is normal. Right ventricular systolic function is normal. There is no hemodynamically significant valve disease. Minor valvular abnormalities as below. The ascending aorta is dilated (4.1 cm). The aortic root is probably upper normal at 3.8 cm. Compared with prior echo from 10/14/2023, findings are unchanged. Ascending aorta measured 4.1 on the previous study when I remeasured it. Aortic root margins are better delineated on today's study. Left Ventricle Left ventricle cavity size is normal. There is mild hypertrophy. Systolic function is hyperdynamic with an ejection fraction over 70%. There were no obvious LV outflow or mid cavitary gradient seen on the study though a thorough investigation was not performed. There are no regional LV wall motion abnormalities. Indeterminate diastolic function. Left atrial pressure is inconclusive. Right Ventricle Right ventricle cavity appears normal. Systolic function is normal. Left Atrium Left atrium cavity size is normal. Right Atrium Right atrium cavity is mildly dilated. IVC/SVC Inferior vena cava was not well visualized. Mitral Valve The leaflets are mildly thickened. There is trace regurgitation. There is no evidence of mitral valve stenosis. Tricuspid Valve Tricuspid valve structure is normal. There is trace regurgitation. There is no evidence of tricuspid valve stenosis. The RV systolic pressure is likely normal to borderline high at 30 mmHg plus right atrial pressure. Aortic Valve The aortic valve is trileaflet. The leaflets are moderately thickened and exhibit reduced excursion. There is trace regurgitation. There is no significant stenosis. There is aortic sclerosis without stenosis. The mean gradient is 10 mmHg. The aortic valve area by continuity equation is 2.0 cm2. Pulmonic Valve Visualized portions of the pulmonic valve appear normal. There is no regurgitation or stenosis. Ascending Aorta The ascending aorta is dilated (4.1 cm). The aortic root is likely upper normal in size for age and body surface area at 3.8 cm. Pericardium Pericardium appears normal. Study Details Overall the study quality was adequate. Manohar TILLMAN CV ECHO PROCEDURES Final Result * Lipid panel with reflex to direct LDL (08/10/2024 9:00 AM EDT) Cholesterol 142 0 - 200 mg/dL LAB CHEMISTRY METHOD 08/10/2024 1:08 PM [facility] Triglycerides 64 0 - 150 mg/dL LAB CHEMISTRY METHOD 08/10/2024 1:08 PM [facility] HDL 58 >=40 mg/dL LAB CHEMISTRY METHOD 08/10/2024 1:08 PM [facility] LDL Calculated 71 0 - 100 mg/dL LAB CHEMISTRY METHOD 08/10/2024 1:08 PM [facility] VLDL Cholesterol Brian 12.8 mg/dL LAB CHEMISTRY METHOD 08/10/2024 1:08 PM [facility] Non HDL Chol. (LDL+VLDL) 84 <145 mg/dL LAB CHEMISTRY METHOD 08/10/2024 1:08 PM [facility] Chol/HDL Ratio 2.4 0.0 - 4.4 LAB CHEMISTRY METHOD 08/10/2024 1:08 PM [facility] Blood Venous blood specimen / Unknown Venipuncture / Unknown 08/10/2024 9:00 AM EDT 08/10/2024 9:00 AM EDT Manohar TILLMAN LAB BLOOD ORDERABLES Adriana l Result [facility] [address] [place] [address], * (ABNORMAL) Comprehensive metabolic panel (08/10/2024 9:00 AM EDT) Sodium 138 133 - 145 mmol/L LAB CHEMISTRY METHOD 08/10/2024 1:08 PM [facility] Potassium 4.3 3.5 - 5.5 mmol/L LAB CHEMISTRY METHOD 08/10/2024 1:08 PM [facility] Chloride 103 96 - 110 mmol/L LAB CHEMISTRY METHOD 08/10/2024 1:08 PM [facility] CO2 29 21 - 32 mmol/L LAB CHEMISTRY METHOD 08/10/2024 1:08 PM [facility] Anion Gap 6 3 - 11 LAB CHEMISTRY METHOD 08/10/2024 1:08 PM [facility] Glucose 114(H) 70 - 100 mg/dL LAB CHEMISTRY METHOD 08/10/2024 1:08 PM [facility] BUN 17 5 - 25 mg/dL LAB CHEMISTRY METHOD 08/10/2024 1:08 PM [facility] Creatinine 1.03 0.70 - 1.30 mg/dL LAB CHEMISTRY METHOD 08/10/2024 1:08 PM [facility] eGFR 73 >=60 mL/min/1. 73m2 LAB CHEMISTRY METHOD 08/10/2024 1:08 PM [facility] [facility] Comment:Calculation based on the Chronic Kidney Disease Epidemiology Collaboration (CKD-EPI) equation refit without adjustment for race. BUN/Creatinine Ratio 16.5 LAB CHEMISTRY METHOD 08/10/2024 1:08 PM [facility] Calcium 9.5 8.5 - 10.5 mg/dL LAB CHEMISTRY METHOD 08/10/2024 1:08 PM [facility] AST (SGOT) 36 10 - 42 unit/L LAB CHEMISTRY METHOD 08/10/2024 1:08 PM [facility] ALT (SGPT) 49 10 - 60 unit/L LAB CHEMISTRY METHOD 08/10/2024 1:08 PM [facility] Alkaline Phosphatase 113 42 - 121 unit/L LAB CHEMISTRY METHOD 08/10/2024 1:08 PM [facility] Total Protein 6.8 6.0 - 8.0 g/dL LAB CHEMISTRY METHOD 08/10/2024 1:08 PM [facility] Albumin 4.2 3.2 - 5.0 g/dL LAB CHEMISTRY METHOD 08/10/2024 1:08 PM [facility] Total Bilirubin 0.9 0.0 - 1.4 mg/dL LAB CHEMISTRY METHOD 08/10/2024 1:08 PM [facility] Blood Venous blood specimen / Unknown Venipuncture / Unknown 08/10/2024 9:00 AM EDT 08/10/2024 9:00 AM EDT us Manohar TILLMAN LAB BLOOD ORDERABLES Adriana jiang Result [facility] [address] [place] [address], from Last 3 Months or Most Recently Relevant to Health Maintenance Insurance [employer] Advance Directives Documents on File Type Date Recorded Patient Mica Plate Layer Expl anation Advance Directives and Living Will 05/02/2024 1:04 PM Health Care Proxy Health Care Decision (hx) 05/30/2020 AD KEE DIRECTIVE Health Care Decision (hx) 05/30/2020 AD KEE DIRECTIVE Health Care Decision (hx) 05/30/2020 AD KEE DIRECTIVE Health Care Decision (hx) 05/30/2020 AD KEE DIRECTIVE Health Care Decision (hx) 05/30/2020 AD KEE DIRECTIVE Health Care Decision (hx) 05/30/2020 AD KEE DIRECTIVE Health Care Decision (hx) 05/30/2020 AD KEE DIRECTIVE Health Care Decision (hx) 05/30/2020 AD KEE DIRECTIVE Health Care Decision (hx) 05/30/2020 AD KEE DIRECTIVE Health Care Decision (hx) 11/27/2019 AD KEE DIRECTIVE Health Care Decision (hx) 11/27/2019 AD KEE DIRECTIVE Health Care Decision (hx) 11/27/2019 AD KEE DIRECTIVE Health Care Decision (hx) 11/27/2019 AD KEE DIRECTIVE Health Care Decision (hx) 11/27/2019 AD KEE DIRECTIVE Health Care Decision (hx) 11/27/2019 AD KEE DIRECTIVE Health Care Decision (hx) 11/27/2019 AD KEE DIRECTIVE Health Care Decision (hx) 11/27/2019 AD KEE DIRECTIVE Health Care Decision (hx) 11/27/2019 AD KEE DIRECTIVE Health Care Decision (hx) 11/27/2019 AD KEE DIRECTIVE Health Care Decision (hx) 11/27/2019 AD KEE DIRECTIVE Health Care Decision (hx) 11/27/2019 AD KEE DIRECTIVE Health Care Decision (hx) 09/05/2009 AD KEE DIRECTIVE Health Care Decision (hx) 09/05/2009 AD KEE DIRECTIVE Health Care Decision (hx) 09/05/2009 AD KEE DIRECTIVE Health Care Decision (hx) 09/05/2009 AD KEE DIRECTIVE Health Care Decision (hx) 09/05/2009 AD KEE DIRECTIVE Health Care Decision (hx) 09/05/2009 AD KEE DIRECTIVE Health Care Decision (hx) 09/05/2009 AD KEE DIRECTIVE Health Care Decision (hx) 09/05/2009 AD KEE DIRECTIVE Health Care Decision (hx) 09/05/2009 AD KEE DIRECTIVE Health Care Decision (hx) 09/05/2009 AD KEE DIRECTIVE Health Care Decision (hx) 09/05/2009 AD KEE DIRECTIVE Health Care Decision (hx) 09/05/2009 AD KEE DIRECTIVE Health Care Decision (hx) 09/05/2009 AD KEE DIRECTIVE Health Care Decision (hx) 09/05/2009 AD KEE DIRECTIVE Care Teams Laborer Plumbing Relationship Specialty Start Date End Date Manohar Zaragoza PA [address] [place] [id number] PCP - General Internal Medicine 07/31/24
== END 2024-12-31 10:14 | disposition home or self-care (01) ==
LOC: HO.HOS 09:32
PROVIDERS: Visit Provider Orthopaedic Surgery
DX: M54.50 Low back pain, unspecified (principal); M79.605 Pain in left leg
CPT/HCPCS: 99213; G2211

== ENCOUNTER → 2024-12-31 09:31 | Outpatient (BNVA) | payer MEDICARE, SELFPAY | PROVIDERS: Visit Provider Orthopaedic Surgery | DX: M54.50 Low back pain, unspecified (principal); M79.605 Pain in left leg | CPT/HCPCS: 99212 ==

== ENCOUNTER 2025-02-05 10:24 | Outpatient (AMB) | payer MEDICARE, SELFPAY ==
[2025-02-05 10:36] VITALS: BMI 33.0
--- NOTE | 2025-02-05 10:36 | A.SPINEOV_ITS ---
Vital Signs 02/05/25 10:36 Height 6 ft 1 in Weight 250 lb BMI 33.0 Intake Visit Reasons: LBP Intake Note: Mr. Meraz is here today c/o low back pain that radiates to the left leg, causing unbalance. Before School Babysitter Required: No Allergies No Known Allergies Allergy (Verified 02/05/25 10:37) Physical Exam Vital Signs: BMI result Body Mass Index 33.0 Assessment & Plan Assessment & Plan (1) Lumbar stenosis with neurogenic claudication: Code(s): M48.062 - Spinal stenosis, lumbar region with neurogenic claudication Category: Medical Plan Dear [] Thank you for referring [] to the office today with a chief complaint of []. HPI: [] The following conservative treatment options were tried without success an tiinflammatories, tylenol, physician guided home exercise plan, cortisone shots PMH: [] Medications: [] Allergies: [] Social history: [] Physical Exam: [] Radiological Studies: MRI done at [] on [] Impression/Plan: [] Thank you for allowing me to participate in your patients care. total time spent was 50 minutes in counseling ,coordination of plan, personal review of imaging, surgical decision making and subsequent plan Yoni Ritchie MD, PhD Spine Fellowship Trained Neurosurgeon Director, [facility] [place] [facility] Coding Diagnoses Lumbar stenosis with neurogenic claudication M48.062
--- OUTSIDE RECORDS SUMMARY | 2025-02-05 11:28 | XMS_ITS | Encounter Summary ---
Author Organization [facility] Address [address] [place] [address] Care Team Providers Care Rewinder Operator Name Role Phone Manohar Zaragoza Primary Care Provider [phone] Encounter Details Date Type Department Care Team (Late Contact Info) Description 07/29/2024 Lab Requisition [facility] - Main Lab [address] [facility] [place] [phone] Francisco Wilson MD [address] [place] [address] Benign essential microscopic hematuria Social History Tobacco [...] Department Care Team (Late Contact Info) Description 05/03/2025 10:00 AM EST Consult Adult Medicine [address] [phone] Manohar Zaragoza PA [address] [place] [address] 05/18/2025 8:00 AM EST Consult Orthopedic Surgery [facility] [address] [phone] Michelet Stevenson DPM [address] [phone] 05/21/2025 10:45 AM EST Hospital Encounter [facility] Main OR [address] [place] [phone] Michelet Stevenson DPM [address] [phone] 05/21/2025 10:45 AM EST - 05/21/2025 12:45 PM EST Surgery [facility] Main OR [address] [place] [phone] Michelet Stevenson DPM [address] [phone] RIGHT BUNIONECTOMY [[id number] (CPT )] 06/07/2025 10:00 AM EST Office Visit Orthopedic Surgery [facility] [address] [phone] Michelet Stevenson DPM [address] [phone] 11/01/2025 11:00 AM EDT Ancillary Procedure [facility] 101 300 [facility] 101 [place] [phone] Scheduled Procedures Name Priority Associated Diagnoses Date/Ti me BUNIONECTOMY Acquired hallux valgus of right foot Hallux rigidus of right foot 05/21/2025 10:45 AM EST documented as of this encounter Procedures Procedure Name Priority Date/Time Associated Diagnosis Comments AP OUTSIDE CONSULT Routine 07/28/2024 12 :00 AM EST Benign essential microscopic hematuria documented in this encounter Results * Anatomic pathology outside consult (07/28/2024 12:00 AM EST) Final Diagnosis A. Urine, Voided, ([id number]): Negative for high grade urothelial carcinoma. 08/06/2024 4:46 PM [facility] Clinical Information Benign essential microscopic hematuria R31.1 Urine cytology with reflex UroVysion (AUC/SHGUC) 08/06/2024 4:46 PM EST [facility] Gross Description A. Urine, Voided, ([id number]): Received is one ThinPrep slide for cytology. 08/06/2024 4:46 PM [facility] Disclaimer Unless otherwise specified, all tissue is 10% NB formalin fixed and paraffin embedded. Technical pathology services provided by [facility] at [address], [place] [address] (CLIA #[id number]/Sa zac Begum MD, Education Program Manager) 08/06/2024 4:46 PM [facility] Tissue Urine specimen from urethra / Unknown 07/28/2024 07/29/2024 1:30 PM EST us Francisco Wilson MD LAB PATHOLOGY ORDERABLES Fi nal Result [facility] [address] [place] [address], documented in this encounter Visit Diagnoses Diagnosis Benign essential microscopic hematuria Acquired hallux valgus of right foot Hallux rigidus of right foot documented in this encounter Care Teams Rewinder Operator Relationship Specialty Start Date End Date Manohar Zaragoza PA [address] [place] [id number] PCP - General Internal Medicine 07/31/24 documented as of this encounter
--- OUTSIDE RECORDS SUMMARY | 2025-02-05 11:28 | XMS_ITS | Clinical Summary ---
Author Organization [address] [place] [address] [place] [phone] Phone Care Team Providers Care Microfiche Duplicator Name Role Phone Manohar Zaragoza Primary Care Provider [phone] Allergies No known active allergies Medications amoxicillin [...] EVERY DAY 90 tablet 3 5 Active losartan (COZAAR) 25 mg tablet TAKE 1 TABLET BY MOUTH EVERY DAY 90 tablet 1 5 Active Active Problems Problem Noted Date Diagnosed Date Acquired hallux valgus of right foot 12/23/2024 Hallux rigidus of right foot 12/23/2024 Primary hypertension 07/31/2024 Status post bilateral knee replacements 10/05/19 Right carpal tunnel syndrome 06/20/2021 Trigger finger, [...] Encounters Date Type Department Care Team Description 01/18/2025 Telephone Adult Medicine [address] [place] [phone] Manohar Zaragoza PA 12/23/2024 2:15 PM EDT Office Visit Orthopedic Surgery [address] [phone] Michelet Stevenson, DPM Acquired hallux valgus of right foot (Primary Dx); Follow-up exam; Hallux rigidus of right foot 12/01/2024 11:15 AM EDT - 12/01/2024 11:59 PM EDT Hospital Encounter Radiology Department - [address] [phone] Right leg pain Discharge Disposition: Home or Self Care 12/01/2024 11:00 AM EDT Office Visit Adult Medicine [address] [phone] Rosa Maria Lauren PA Mild persistent asthma without complication (Primary Dx); Right leg pain; Thrombophlebitis of superficial veins of right lower extremity 11/16/2024 1:15 PM EDT Office Visit Orthopedic Surgery [address] [phone] Michelet Stevenson, SUMAN Acquired hallux valgus of right foot (Primary Dx); Ward of foot; Hallux rigidus of right foot from Last 3 Months Immunizations Name Administration Dates Next Due Influenza trivalent, 0.5mL ( Fluad) 65yo and older 03/11/2023,02/27/2022,02/22/2021,02/21,03/17/2019,02/25/2018,03/10/2017 ,03/05/2016 Influenza trivalent, 0.5mL, preservative free (Fluarix; FluLaval; Fluzone) ages 6mo and older (Afluria) 3 years and older 03/06/2015,03/19/2014,03/11/2013,05/07,07/03/2011 [employer] SARS-CoV-2 COVID-19, mRNA, LNP-S, preservative free 04/24/2021,09/16/2020,08/24/2020 Pneumococcal conjugate 13 va lent (Prevnar 13, PCV13) 2mo and older 03/05/2016 Pneumococcal polysaccharide 23 valent (Pneumovax 23) 2yo and older 04/22/2013 Td Tetanus diptheria (Tdvax) 7yo and older 04/22/2013 Zoster Live 03/11/2013 Surgical History Surgery Date Site/Laterality Comments PROSTATECTOMY 2002 PROCEDURE: PROSTATECTOMY; COMMENT: prostate cancer COLONOSCOPY 10/15/2000 PROCEDURE: WY COLONOSCOPY STOMA DX INCLUDING COLLJ SPEC SPX; COMMENT: normal ESOPHAGOGASTRODUODENOSCOPY 02/22/2003 PROCEDURE: WY ESOPHAGOGASTRODUODENOSCOPY TRANSORAL DIAGNOSTIC; COMMENT: normal COLONOSCOPY 08/30/2011 PROCEDURE: WY COLONOSCOPY FLX DX W/COLLJ SPEC WHEN PFRMD; COMMENT: minimal diverticulosis TONSILLECTOMY PROCEDURE: HISTORICAL TONSILLECTOMY CATARACT EXTRACTION PROCEDURE: HISTORICAL CATARACT REMOVAL OTHER SURGICAL HISTORY PROCEDURE: HISTORY OTHER; COMMENT: eye lid surgery TOTAL KNEE ARTHROPLASTY 11/2019 Bilateral PROCEDURE: WY ARTHRP KNE CONDYLE&PLATU MEDIAL&LAT COMPARTMENTS; COMMENT: left [...] care for your loved ones. For example, child and family services specialist or elderly care for an older adult? [...] Care Team (Late st Contact Info) Description 05/03/2025 10:00 AM EST Consult Adult Medicine [address] [phone] Manohar Zaragoza PA [address] [place] [phone] 05/18/2025 8:00 AM EST Consult Orthopedic Surgery [facility] [address] [phone] Mcihelet Stevenson DPM [address] [phone] 05/21/2025 10:45 AM EST Hospital Encounter [facility] OR [address] [place] [phone] Michelet Stevenson DPM [address] [phone] 05/21/2025 10:45 AM EST - 05/21/2025 12:[address] [facility] OR [address] [place] [phone] Michelet Stevenson DPM [address] [phone] RIGHT BUNIONECTOMY [[id number] (CPT )] 06/07/2025 10:00 AM EST Office Visit Orthopedic Surgery - [facility] 250 175 [facility] 250 [place] [phone] Michelet Stevenson, DPM 175 [facility] 250 [place] [phone] 11/01/2025 11:00 AM EDT Ancillary Procedure [facility] [address] [facility] [address] [place] [address] Scheduled Procedures Name Priority Associated Diagnoses Date/Ti me BUNIONECTOMY Acquired hallux valgus of right foot Hallux rigidus of right foot 05/21/2025 10:45 AM EST Health Maintenance Due Date Last Done Comments Zoster Vaccines (1 of 2) 05/06/2013 03/11/2013 RSV Immunization Adult Patients (1 - 1-dose 75+ series) 10/21/2018 Medicare Annual Wellness Visit 05/10/2022 DTaP,Tdap,and Td Vaccines (2 - Td or Tdap) 04/22/2023 04/22/2013 COVID-19 Vaccine ( season) 2025 03/11/2023, 02/27/2022, 04/24/2021, Additional history exists Hypertension/CHF/CAD [...] right foot Hallux rigidus of right foot COMPREHENSIVE METABOLIC PANEL Routine 08/10/2024 9:00 AM EDT Wheeze Aneurysm of ascending aorta without rupture ([facility]/HCC V24) Uncomplicated asthma, unspecified asthma severity, unspecified whether persistent Other hyperlipidemia Gout, unspecified cause, unspecified chronicity, unspecified site LIPID PANEL WITH REFLEX TO DIRECT LDL Routine 08/10/2024 9:00 AM EDT Wheeze Aneurysm of ascending aorta without rupture (CMS/HCC V24) Uncomplicated asthma, unspecified asthma severity, unspecified [...] Signed Date: 12/01/2024 12:02 ET Workstation ID: [id number] Transcribed By: Self Edit Transcribed Date: 12/01/2024 [...] Signed Date: 12/01/2024 12:02 ET Workstation ID: [id number] Transcribed By: Self Edit Transcribed Date: 12/01/2024 12:00 ET us Rosa Maria Leonidas TILLMAN CV VASCULAR PROCEDURES Final Res ult * [...] IN CLINIC/BEDSIDE ORDERAB LES Final Result * Lipid panel with reflex to direct LDL (08/10/2024 9:00 AM EDT) [facility] Cholesterol 142 0 - 200 mg/dL LAB CHEMISTRY METHOD 08/10/2024 1:08 PM EDT [facility] Triglycerides 64 0 - 150 mg/dL LAB CHEMISTRY METHOD 08/10/2024 1:08 PM EDT [facility] HDL 58 >=40 mg/dL LAB CHEMISTRY METHOD 08/10/2024 1:08 PM EDT [facility] LDL Calculated 71 0 - 100 mg/dL LAB CHEMISTRY METHOD 08/10/2024 1:08 PM EDT [facility] VLDL Cholesterol Brian 12.8 mg/dL LAB CHEMISTRY METHOD 08/10/2024 1:08 PM [facility] Non HDL Chol. (LDL+VLDL) 84 <145 mg/dL LAB CHEMISTRY METHOD 08/10/2024 1:08 PM [facility] Chol/HDL Ratio 2.4 0.0 - 4.4 LAB CHEMISTRY METHOD 08/10/2024 1:08 PM [facility] Blood Venous blood specimen / Unknown Venipuncture / Unknown 08/10/2024 9:00 AM EDT 08/10/2024 9:00 AM EDT us Manohar TILLMAN LAB BLOOD ORDERABLES Adriana l Result [facility] [address] [place] [address], * (ABNORMAL) Comprehensive metabolic panel (08/10/2024 9:00 AM EDT) Sodium 138 133 - 145 mmol/L LAB CHEMISTRY METHOD 08/10/2024 1:08 PM [facility] Potassium 4.3 3.5 - 5.5 mmol/L LAB CHEMISTRY METHOD 08/10/2024 1:08 PM [facility] Chloride 103 96 - 110 mmol/L LAB CHEMISTRY METHOD 08/10/2024 1:08 PM [facility] CO2 29 21 - 32 mmol/L LAB CHEMISTRY METHOD 08/10/2024 1:08 PM [facility] Anion Gap 6 3 - 11 LAB CHEMISTRY METHOD 08/10/2024 1:08 PM [facility] Glucose 114(H) 70 - 100 mg/dL LAB CHEMISTRY METHOD 08/10/2024 1:08 PM [facility] BUN 17 5 - 25 mg/dL LAB CHEMISTRY METHOD 08/10/2024 1:08 PM [facility] Creatinine 1.03 0.70 - 1.30 mg/dL LAB CHEMISTRY METHOD 08/10/2024 1:08 PM [facility] eGFR 73 >=60 mL/min/1. 73m2 LAB CHEMISTRY METHOD 08/10/2024 1:08 PM [facility] Comment:Calculation based on the Chronic Kidney Disease Epidemiology Collaboration (CKD-EPI) equation refit without adjustment for race. BUN/Creatinine Ratio 16.5 LAB CHEMISTRY METHOD 08/10/2024 1:08 PM [facility] Calcium 9.5 8.5 - 10.5 mg/dL LAB CHEMISTRY METHOD 08/10/2024 1:08 PM [facility] AST (SGOT) 36 10 - 42 unit/L LAB CHEMISTRY METHOD 08/10/2024 1:08 PM [facility] ALT (SGPT) 49 10 - 60 unit/L LAB CHEMISTRY METHOD 08/10/2024 1:08 PM [facility] Alkaline Phosphatase 113 42 - 121 unit/L LAB CHEMISTRY METHOD 08/10/2024 1:08 PM [facility] Total Protein 6.8 6.0 - 8.0 g/dL LAB CHEMISTRY METHOD 08/10/2024 1:08 PM [facility] Albumin 4.2 3.2 - 5.0 g/dL LAB CHEMISTRY METHOD 08/10/2024 1:08 PM [facility] Total Bilirubin 0.9 0.0 - 1.4 mg/dL LAB CHEMISTRY METHOD 08/10/2024 1:08 PM [facility] Blood Venous blood specimen / Unknown Venipuncture / Unknown 08/10/2024 9:00 AM EDT 08/10/2024 9:00 AM EDT Manohar TILLMAN LAB BLOOD ORDERABLES Adriana jiang Result [facility] [address] [place] [address], from Last 3 Months or Most Recently Relevant to Health Maintenance Insurance [employer] Advance Directives Documents on File Type Date Recorded 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
--- OUTSIDE RECORDS SUMMARY | 2025-02-05 11:28 | XMS_ITS | Clinical Summary ---
Author Organization [facility] Address [address] [place] [address] Care Team Providers Care Pit Operator Name Role Phone Tammie Crystal MD Primary Care Provider Allergies No known active allergies Medications Medication [...] 75+ series) 10/21/2018 COVID-19 Vaccine ( season) 2025 04/24/2021, 09/16/2020, 08/24/2020 Influenza Vaccine (#1) 2025 , 02/22/2020, 03/17/2019, Additional history exists Pneumococcal Vaccine Completed 03/05/2016, 04/22/20 13 Hepatitis B Vaccines Aged Out No long er eligible based on patient's age to complete this topic RSV Ped < 20 months Aged Out No longe r eligible based on patient's age to complete this topic Care Teams Pit Operator Relationship Specialty Start Date End Date Tammie Crystal MD [address] [place] [address] PCP - General Internal Medicine 06/15/21
--- NOTE | 2025-02-05 12:07 | A.SPINEOV_ITS ---
Vital Signs 02/05/25 10:36 Height 6 ft 1 in Weight 250 lb BMI 33.0 Intake Visit Reasons: LBP Allergies No Known Allergies Allergy (Verified 02/05/25 10:37) Physical Exam Vital Signs: BMI result Body Mass Index 33.0 Assessment & Plan Assessment & Plan (1) Lumbar stenosis with neurogenic claudication: Code(s): M48.062 - Spinal stenosis, lumbar region with neurogenic claudication Category: Medical Plan: Dear colleague Thank you for referring Rio Meraz to the office today with a chief complaint of back pain and left leg pain. HPI: This 79-year-old male is referred by who we saw for left hip pain. The left hip was excluded but an MRI of the lumbar spine showed severe lumbar spinal stenosis L3-4 and L4-5. The patient states that since 2 years he has progressive discomfort of his left leg. Drags his left leg and trips that causes him to fall. Right side is unaffected. The discomfort and balance issues come with walking and standing. Leaning forward or sitting down improves the symptoms. His is taken off many chores but despite the lifestyle modifications the symptoms are progressing. PMH: 2 knee replacements, hypertension and a thoracic aneurysm which has been stable for years on sequential imaging. Medications: Atorvastatin, allopurinol, indomethacin, losartan, vitamin-D, Osteo Bi-Flex Allergies: NKDA Social history: . Nonsmoker. Physical Exam: Pleasant male height 6'1 weight 250 lb. He is awake alert and oriented x3. His cranial nerves are intact. Romberg is negative. He ambulates with small steps. Straight leg raise is negative. No motor or sensory deficits. Radiological Studies: MRI done at [facility] shows severe L3-4 and L4-5 spinal stenosis Impression/Plan: This 79-year-old otherwise healthy gentleman is suffering from unilateral neurogenic claudication causing left-sided leg pain (hip pain), weakness and balance issues. The symptoms are progressive and has significantly reduced his activity level. I offered him a left L3-4 and L4-5 decompression. He is scheduled for March 11. He will get preoperative clearance from his primary care physician. Thank you for allowing me to participate in your patients care. total time spent was 50 minutes in counseling ,coordination of plan, personal review of imaging, surgical decision making and subsequent plan Yoni Ritchie MD, PhD Spine Fellowship Trained Neurosurgeon Director, [facility] [place] [facility] Coding Level of Care Code New Pt Level 4 (68597) Diagnoses Lumbar stenosis with neurogenic claudication M48.062
== END 2025-02-05 12:17 | disposition home or self-care (01) ==
LOC: HO.HNS 10:25
PROVIDERS: PCP Physician Assistant Medical; Referring Provider Orthopaedic Surgery; Visit Provider Neurological Surgery
DX: M48.062 Spinal stenosis, lumbar region with neurogenic claudication (principal)
CPT/HCPCS: 99204

== ENCOUNTER → 2025-02-05 10:24 | Outpatient (BNVA) | payer MEDICARE, SELFPAY | PROVIDERS: PCP Physician Assistant Medical; Referring Provider Orthopaedic Surgery; Visit Provider Neurological Surgery | DX: M48.062 Spinal stenosis, lumbar region with neurogenic claudication (principal) | CPT/HCPCS: 99202 ==

== ENCOUNTER 2025-03-11 10:02 | Day surgery (SDC) | payer MEDICARE, SELFPAY ==
--- OUTSIDE RECORDS SUMMARY | 2025-03-01 09:25 | XMS_ITS | Clinical Summary ---
Author Organization [address] [place] [address] [place] [phone] Phone Care Team Providers Care Movie Operator Name Role Phone Manohar Zaragoza Primary Care Provider [phone] Allergies No known active allergies Medications amoxicillin [...] Encounters Date Type Department Care Team Description 02/09/2025 Telephone Adult Medicine [facility] [address] [place] [phone] Manohar Zaragoza PA 01/18/2025 Telephone Adult Medicine [facility] [address] [place], [place] [phone] Manohar Zaragoza PA 12/23/2024 2:15 PM EDT Office Visit Orthopedic Surgery - [address] [phone] Michelet Stevenson, DPM Acquired hallux valgus of right foot (Primary Dx); Follow-up exam; Hallux rigidus of right foot 12/01/2024 11:15 AM EDT - 12/01/2024 11:59 PM EDT Hospital Encounter Radiology Department - [address] [phone] Right leg pain Discharge Disposition: Home or Self Care 12/01/2024 11:00 AM EDT Office Visit Adult Medicine [address] [phone] Rosa Maria Lauren PA Mild persistent asthma without complication (Primary Dx); Right leg pain; Thrombophlebitis of superficial veins of right lower extremity from Last 3 Months Immunizations Immunization Administration Dates Next Due Influenza trivalent, 0.5mL ( Fluad) 65yo and older 03/11/2023,02/27/2022,02/22/2021,02/21,03/17/2019,02/25/2018,03/10/2017 ,03/05/2016 Influenza trivalent, 0.5mL, preservative free (Fluarix; FluLaval; Fluzone) ages 6mo and older (Afluria) 3 years and older 03/06/2015,03/19/2014,03/11/2013,05/07,07/03/2011 [facility] SARS-CoV-2 COVID-19, mRNA, LNP-S, preservative free 04/24/2021,09/16/2020,08/24/2020 Pneumococcal conjugate 13 va lent (Prevnar 13, PCV13) 2mo and older 03/05/2016 Pneumococcal polysaccharide 23 valent (Pneumovax 23) 2yo and older 04/22/2013 Td Tetanus diptheria (Tdvax) 7yo and older 04/22/2013 Zoster Live 03/11/2013 Surgical History Surgery Date Site/Laterality Comments PROSTATECTOMY 2002 PROCEDURE: PROSTATECTOMY; COMMENT: prostate cancer COLONOSCOPY 10/15/2000 PROCEDURE: MD COLONOSCOPY STOMA DX INCLUDING COLLJ SPEC SPX; COMMENT: normal ESOPHAGOGASTRODUODENOSCOPY 02/22/2003 PROCEDURE: MD ESOPHAGOGASTRODUODENOSCOPY TRANSORAL DIAGNOSTIC; COMMENT: normal COLONOSCOPY 08/30/2011 PROCEDURE: MD COLONOSCOPY FLX DX W/COLLJ SPEC WHEN PFRMD; COMMENT: minimal diverticulosis TONSILLECTOMY PROCEDURE: HISTORICAL TONSILLECTOMY CATARACT EXTRACTION PROCEDURE: HISTORICAL CATARACT REMOVAL OTHER SURGICAL HISTORY PROCEDURE: HISTORY OTHER; COMMENT: eye lid surgery TOTAL KNEE ARTHROPLASTY 11/2019 Bilateral PROCEDURE: MD ARTHRP KNE CONDYLE&PLATU MEDIAL&LAT COMPARTMENTS; COMMENT: left [...] care for your loved ones. For example, childhood teacher or elderly care for an older adult? [...] Date Recorded What is your living situation? Unrecognized valu e 08/28/2024 Sex and Gender Information Value Date [...] Care Team (Late st Contact Info) Description 03/02/2025 10:00 AM EDT Consult Adult Medicine [address] [phone] Vinay Newby MD [address] [place] [address] 05/03/2025 10:00 AM EST Consult Adult Medicine [address] [phone] Manohar Zaragoza PA [address] [place] [phone] 05/18/2025 8:00 AM EST Consult Orthopedic Surgery - [place] [address] [phone] Michelet Stevenson DPM [address] [phone] 05/21/2025 10:45 AM EST Hospital Encounter [facility] Main OR [address] [place] [phone] Michelet Stevenson DPM [address] [phone] 05/21/2025 10:45 AM EST - 05/21/2025 12:45 PM EST Surgery [facility] Main OR [address] [place] [phone] Michelet Stevenson, DPSherry [address] [phone] RIGHT BUNIONECTOMY [06562 (CPT )] 06/07/2025 10:00 AM EST Office Visit Orthopedic Surgery - [place] [address] [phone] Michelet Stevenson DPM [address] [phone] 11/01/2025 11:00 AM EDT Ancillary Procedure [facility] 101 300 [facility] [address] [place] [phone] Scheduled Procedures Name Priority Associated Diagnoses Date/Ti [...] 12/01/2024 11:45 AM EDT Right leg pain COMPREHENSIVE METABOLIC PANEL Routine 08/10/2024 9:00 AM EDT Wheeze Aneurysm of ascending aorta without rupture ([facility]/HCC V24) Uncomplicated asthma, unspecified asthma severity, unspecified [...] to calcaneal cuboid joint us Michelet Stevenson DPM IMG XR PROCEDURES Final R esult * [...] Signed Date: 12/01/2024 12:02 ET Workstation ID: [id number] Transcribed By: Self Edit Transcribed Date: 12/01/2024 [...] Signed Date: 12/01/2024 12:02 ET Workstation ID: [id number] Transcribed By: Self Edit Transcribed Date: 12/01/2024 12:00 ET us Rosa Maria Leonidas TILLMAN CV VASCULAR PROCEDURES Final Res ult * Lipid panel with reflex to direct [...] mg/dL LAB CHEMISTRY METHOD [facility] Chol/HDL Ratio 2.4 0.0 - 4.4 LAB CHEMISTRY METHOD 08/10/2024 1:08 PM [facility] Blood Venous blood specimen / Unknown Venipuncture / Unknown 08/10/2024 9:00 AM EDT 08/10/2024 9:00 AM EDT us Manohar TILLMAN LAB BLOOD ORDERABLES Adriana l Result [facility] [address] [place] [address], [place] [phone] * (ABNORMAL) Comprehensive metabolic panel (08/10/2024 9:00 [...] 73m2 LAB CHEMISTRY METHOD 08/10/2024 1:08 PM EDT [facility] Comment:Calculation based on the Chronic Kidney Disease Epidemiology Collaboration (CKD-EPI) equation refit without adjustment for race. BUN/Creatinine Ratio 16.5 LAB CHEMISTRY METHOD 08/10/2024 1:08 PM T [facility] Calcium 9.5 8.5 - 10.5 [...] g/dL LAB CHEMISTRY METHOD 08/10/2024 1:08 PM [facility] Albumin 4.2 3.2 - 5.0 g/dL LAB CHEMISTRY METHOD 08/10/2024 1:08 PM [facility] Total Bilirubin 0.9 0.0 - 1.4 mg/dL LAB CHEMISTRY METHOD 08/10/2024 1:08 PM T [facility] Blood Venous blood specimen / Unknown Venipuncture / Unknown 08/10/2024 9:00 AM EDT 08/10/2024 9:00 AM EDT us Manohar TILLMAN LAB BLOOD ORDERABLES Adriana jiang Result [facility] [address] [place] [address], from Last 3 Months or Most Recently Relevant to Health Maintenance Insurance [employer] Advance Directives Documents on File Type Date Recorded Patient Hydrogen Cell Tender Expl anation Advance Directives and Living Will [...] DIRECTIVE Health Care Decision (hx) 11/27/2019 AD EKE DIRECTIVE Health Care Decision (hx) 11/27/2019 AD [...] (hx) 09/05/2009 AD KEE DIRECTIVE Care Teams Movie Operator Relationship Specialty Start Date End Date Manohar Zaragoza PA [address] [place] [id number] PCP - General Internal Medicine 07/31/24
--- OUTSIDE RECORDS SUMMARY | 2025-03-01 09:25 | XMS_ITS | Encounter Summary ---
Author Organization [facility] Address [address] [place] [address] Care Team Providers Care Linter Drier Operator Name Role Phone Manohar Zaragoza Primary Care Provider [phone] Encounter Details Date Type Department Care Team (Late Contact Info) Description 07/29/2024 Lab Requisition [facility] - Main Lab [address] [facility] [place] [phone] Francisco Wilson MD [address] [place] [address] Benign essential microscopic hematuria Social History Tobacco [...] Department Care Team (Late Contact Info) Description 03/02/2025 10:00 AM EDT Consult Adult Medicine [address] [phone] Vinay Newby MD [address] [place], [place] 05/03/2025 10:00 AM EST Consult Adult Medicine [address] [phone] Manohar Zaragoza PA [address] [place] [phone] 05/18/2025 8:00 AM EST Consult Orthopedic Surgery [place] [address] [phone] Michelet Stevenson DPM [address] [phone] 05/21/2025 10:45 AM EST Hospital Encounter [facility] Main OR [address] [place] [phone] Michelet tSevenson DPM [address] [phone] 05/21/2025 10:45 AM EST - 05/21/2025 12:45 PM EST Surgery [facility] OR [address] [place] [phone] Michelet Stevenson DPM [address] [phone] RIGHT BUNIONECTOMY [18007 (CPT )] 06/07/2025 10:00 AM EST Office Visit Orthopedic Surgery [place] [address] [phone] Michelet Stevenson DPM [address] [phone] 11/01/2025 11:00 AM EDT Ancillary Procedure [facility] [address] [phone] Scheduled Procedures Name Priority Associated Diagnoses Date/Ti [...] AM EST) Final Diagnosis A. Urine, Voided, ([id number]): Negative for high grade urothelial carcinoma. 08/06/2024 4:[address] [facility] Clinical Information Benign essential microscopic hematuria R31.1 Urine cytology with reflex UroVysion (AUC/SHGUC) 08/06/2024 4:[address] [facility] Gross Description A. Urine, Voided, ([id number]): Received is one ThinPrep slide for cytology. 08/06/2024 4:[address] [facility] Disclaimer Unless otherwise specified, all tissue is 10% NB formalin fixed and paraffin embedded. 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
--- OUTSIDE RECORDS SUMMARY | 2025-03-01 09:25 | XMS_ITS | Clinical Summary ---
Author Organization [facility] Address [address] [place] [address] Care Team Providers Care Elevator Worker Name Role Phone Tammie Crystal MD Primary Care Provider [phone] Allergies No known active allergies Medications Medication [...] age to complete this topic Care Teams Elevator Worker Relationship Specialty Start Date End Date Tammie Crystal MD [address] [place] [address] PCP - General Internal Medicine 06/15/21
[2025-03-04 09:48] VITALS: BMI 33.0
[2025-03-11] VITALS (7 sets, daily range): BP systolic 104–155; BP diastolic 59–92; PULSE 81–91; RESP 16; TEMP 36.4–36.9; O2SAT 93–96; BMI 32.3
--- NOTE | ~2025-03-11 | FL_ITS ---
EXAMINATION: FL GUIDANCE ONLY HISTORY: Decompression, L3-5 COMPARISON: None available. TECHNIQUE: Fluoroscopy time: 4.2 seconds. Cumulative Dose: 4.0707 mGy. DAP: 1.6364 Gycm2 Images: 1. FINDINGS: A single fluoroscopic spot film of the lumbar spine in the lateral projection demonstrates a probe directed toward the L4-5 intervertebral disc space from a posterior approach. FL/FL guidance in OR IMPRESSION: Fluoroscopy during procedure. Please see procedure report for additional information. Electronically signed by: Eddie Roldan MD 03/11/2025 02:28 PM EDT
[2025-03-11] MEDS: Lactated Ringers 1,000 ML 100 ML IVCONT (11:01)
--- NOTE | 2025-03-11 12:03 | MHC.SHP ---
Pre-Procedural Eval Section A - 24 Hr Update-Section A only Date of Service: 03/11/25 The patient is an INPATIENT: No Section B - Complete if H&P > 30 days Chief Complaint: Spinal stenosis, lumbar region with neurogenic Details of Present Illness: Left leg pain Allergies: Allergies Allergy/AdvReac Type Severity Reaction Status Date / Time No Known Allergies Allergy Verified 03/11/25 10:28 Review of Systems Sugical H&P ROS: Negative: Constitution, Cardiovascular, Respiratory, Neurological, Psychiatric, Hem-Onc, Allergic/Immunologic, Gastrointestinal, Genitourinary, Musculoskeletal, Integumentary, Endocrine and Eyes/Ears/Nose/Throat Exam Surgical H&P Exam: Normal: HEENT, Normal: Heart, Normal: Lungs, Normal: Extremities, Normal: Abdomen, Normal: Skin and Normal: Neurological Plan Diagnosis/Plan: Unchanged I have reviewed the history and physical and performed a pertinent physical examination on my patient. No changes have occurred unless specified. Left L3-4 and L4-5 decompression Time Spent With Patient Time: Total time managing care of this patient today _ 5 ___ minutes.
--- NOTE | 2025-03-11 12:14 | HO.ANESPROP2 ---
Documented by User: Eryn Toledo NP 03/04/25 12:35 HPI - Anesthesia Eval Consult details Narrative: 79yo M for Left L3-4, L4-5 Decompression, 03/11/25 Medically optimized per PCP [facility] Active Problems Active Problems: All Active Problems Lumbar stenosis with neurogenic claudication (Acute) Low back pain radiating to left leg (Acute) Left hip pain (Acute) Bilateral knee pain (Acute) Past Medical History Medical History Wears hearing aid in both ears Habitual snoring Hx of varicose veins Gout Rosacea Tinnitus Hyperlipidemia Diverticulitis Lumbar radiculopathy Actinic keratoses Osteoarthritis Elevated LFTs Arthritis Frequent PVCs Thoracic aortic aneurysm Asthma BCC (basal cell carcinoma of skin) Trigger finger Right carpal tunnel syndrome HTN (hypertension) Acquired hallux valgus of right foot Surgical History Surgical History Hx of prostatectomy Hx of tonsillectomy Hx of bilateral cataract extraction Hx of release of tendon Hx of local excision of skin lesion History of knee replacement (~2019) Social History Social History (Updated 11/03/24 @ 11:18 by CON Gould) Are you a primary campground caretaker to a significant other at home: No Do you presently have visiting nurse or other home services: No Patient Tobacco Use Status: Former Tobacco user Use of substances other than those prescribed or required for medical reasons: No Have you been hit, kicked, punched, or otherwise hurt by someone within the past year? If so, by whom?: No Are you DNR?: No Advance Directives: No Advance Directives Information Provided: Yes Advance Directives on File: No Poor oral hygiene: No Current occupational status: retired [employer] Allergies Allergy/AdvReac Type Severity Reaction Status Date / Time No Known Allergies Allergy Verified 03/11/25 10:28 Home Medications ?Medication ?Instructions ?Recorded ?Confirmed ?Last Taken ?Type albuterol sulfate 90 mcg/actuation 2 inh inhalation QID PRN Shortness 11/03/24 03/04/25 Unknown History aerosol inhaler Of Breath Or Wheezing allopurinol 300 mg tablet 300 mg PO DAILY 11/03/24 03/04/25 Unknown History atorvastatin 20 mg tablet 20 mg PO DAILY 11/03/24 03/04/25 Unknown History indomethacin 50 mg capsule 50 mg PO TID PRN Outbreak 11/03/24 03/04/25 Unknown History losartan 50 mg tablet 50 mg PO QPM 11/03/24 03/04/25 Unknown History amoxicillin 500 mg tablet 2,000 mg PO ONCE 03/03/25 03/04/25 Unknown History aspirin 81 mg tablet,delayed 81 mg PO DAILY 03/03/25 03/03/25 Unknown History release cholecalciferol (vitamin D3) 25 25 mcg PO DAILY 03/03/25 03/04/25 Unknown History mcg (1,000 unit) tablet glucosamine-chondroitin 250 mg-200 1 tab PO DAILY 03/03/25 03/03/25 Unknown History mg tablet gippgvwu-rb-khzue 300 mcg-K 60 1 tab PO DAILY 03/04/25 03/04/25 Unknown History mcg-lycop 600 mcg-lutein 300 mcg tablet (Centrum Silver Men) Exam Height,Weight and Vital Signs: Height 6 ft 1 in Weight 113.398 kg Pertinent Lab Results Pertinent Lab Results: CBC and BMP 02/2025 from outside facility WNL Narrative Narrative: EKG 02/2025 SR @ 59 PACs 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 Left ventricle cavity size is normal. There is mild, concentric LV hypertrophy. There is normal left ventricular regional wall motion. Left ventricular systolic function is hyperdynamic with an ejection fraction over 70%. ? Right ventricle cavity is normal. Right ventricular systolic function is normal. ? There is no hemodynamically significant valve disease. Minor valvular abnormalities as below. ? The ascending aorta is dilated (4.1 cm). The aortic root is probably upper normal at 3.8 cm. ? Compared with prior echo from 10/14/2023, findings are unchanged. Ascending aorta measured 4.1 on the previous study when I remeasured it. Aortic root margins are better delineated on today's study. Assessment and Plan Assessment Anesthesia Assessment: Chart Reviewed Documented by User: Francesca Smith DO 03/11/25 12:16 [facility] Past Medical History Medical History Wears hearing aid in both ears Habitual snoring Hx of varicose veins Gout Rosacea Tinnitus Hyperlipidemia Diverticulitis Lumbar radiculopathy Actinic keratoses Osteoarthritis Elevated LFTs Arthritis Frequent PVCs Thoracic aortic aneurysm Asthma BCC (basal cell carcinoma of skin) Trigger finger Right carpal tunnel syndrome HTN (hypertension) Acquired hallux valgus of right foot Family History Family history of problems with anesthesia: No Surgical History Surgical History Hx of prostatectomy Hx of tonsillectomy Hx of bilateral cataract extraction Hx of release of tendon Hx of local excision of skin lesion History of knee replacement (~2019) History of Problems with Anesthesia: No Social History Social History (Updated 11/03/24 @ 11:18 by Radha Palomo Evan) Are you a primary campground caretaker to a significant other at home: No Do you presently have visiting nurse or other home services: No Patient Tobacco Use Status: Former Tobacco user Use of substances other than those prescribed or required for medical reasons: No Have you been hit, kicked, punched, or otherwise hurt by someone within the past year? If so, by whom?: No Are you DNR?: No Advance Directives: No Advance Directives Information Provided: Yes Advance Directives on File: No Poor oral hygiene: No Current occupational status: retired [employer] Allergies Allergy/AdvReac Type Severity Reaction Status Date / Time No Known Allergies Allergy Verified 03/11/25 10:28 Home Medications ?Medication ?Instructions ?Recorded ?Confirmed ?Last Taken ?Type albuterol sulfate 90 mcg/actuation 2 inh inhalation QID PRN Shortness 11/03/24 03/04/25 Unknown History aerosol inhaler Of Breath Or Wheezing allopurinol 300 mg tablet 300 mg PO DAILY 11/03/24 03/04/25 Unknown History atorvastatin 20 mg tablet 20 mg PO DAILY 11/03/24 03/04/25 Unknown History indomethacin 50 mg capsule 50 mg PO TID PRN Outbreak 11/03/24 03/04/25 Unknown History losartan 50 mg tablet 50 mg PO QPM 11/03/24 03/04/25 Unknown History amoxicillin 500 mg tablet 2,000 mg PO ONCE 03/03/25 03/04/25 Unknown History aspirin 81 mg tablet,delayed 81 mg PO DAILY 03/03/25 03/03/25 Unknown History release cholecalciferol (vitamin D3) 25 25 mcg PO DAILY 03/03/25 03/04/25 Unknown History mcg (1,000 unit) tablet glucosamine-chondroitin 250 mg-200 1 tab PO DAILY 03/03/25 03/03/25 Unknown History mg tablet jycmqbcf-kc-rdiqd 300 mcg-K 60 1 tab PO DAILY 03/04/25 03/04/25 Unknown History mcg-lycop 600 mcg-lutein 300 mcg tablet (Centrum Silver Men) Exam Exam Date and Time: 03/11/25 1214 Height,Weight and Vital Signs: Height 6 ft 1 in Weight 113.398 kg Vital Signs Temperature 98.5 F 03/11/25 11:04 Pulse Rate 81 03/11/25 11:04 Respiratory Rate 16 03/11/25 11:04 Blood Pressure 155/92 H 03/11/25 11:04 Pulse Oximetry 95 03/11/25 11:04 Oxygen Delivery Method Room Air 03/11/25 11:04 Temperature 98.5 F 03/11/25 11:04 Pulse Rate 81 03/11/25 11:04 Respiratory Rate 16 03/11/25 11:04 Blood Pressure 155/92 H 03/11/25 11:04 Pulse Oximetry 95 03/11/25 11:04 Oxygen Delivery Method Room Air 03/11/25 11:04 Airway Mallampati Class: II TM Dist: <=3cm Neck ROM: Limited Loose/Missing/Broken Teeth: No (patient denies any loose or broken teeth) Heart: S1S2 Lungs: CTAB Assessment and Plan Assessment Anesthesia Assessment: Anesthesia Plan Discussed and Chart Reviewed Final Anesthetic Review Family History of Problems with Anesthesia: No History of Problems with Anesthesia: No NPO: Yes ASA Class: II Final Preanesthetic Review: No Changes in Pt Med Stat, Meds/Allgs Chart Reviewed, Consent Obtained/Reviewed and Anes Risks/Benef Reviewed Patient Risk: Low Procedure Risk: Low Anesthetic Plan Anesthetic Plan: GA and Agree w/ Assess. and Plan Disposition: Standard PACU
--- NOTE | 2025-03-11 14:23 | W.PM.OPN ---
Operative Note Operative Note Date of Service: 03/11/25 Narrative: Preoperative Diagnosis: L3-4, L4-5 spinal stenosis/lateral recess stenosis/neural foraminal stenosis Operation: L3-4, L4-5 Laminotomy, Partial facetectomy and foraminotomy with use of microscope Consent Informed Consent was obtained for this operation. I have explained the nature, purpose and benefits of the operation. I have discussed the risks and benefit of the operation including possible complications or adverse events with patient/family. Alternative(s) were discussed with the patient with their relative benefits and risks as well as the consequences of not accepting the operation were included in obtaining consent. Surgeon: AVA LEWIS MD, PHD Procedure Assisted By: Zackary Stephen Description of Procedure This 79-year-old male is suffering from neurogenic claudication radiate left side is more affected than the right side due to L3-4, L4-5 spinal stenosis. The patient was offered a decompression. The procedure complications were explained. The patient was consented. The patient was brought to the operating room and endotracheally intubated. The patient was turned in prone position on the Sb frame. Prep and drape was done followed by timeout. The Physician malt specifications control assistant provided access. A mid lumbar incision was made followed by release of the paravertebral muscle on the left side to expose the L3-L5 lamina and facet joints. An intraoperative x-ray was obtained to confirm the correct level. The microscope was brought in. I took over the procedure. The high-speed drill was used to do a left L3-4 laminotomy until flavum ligament was reached. A #2 Kerrison was used to expand the laminotomy near flush to the pedicles and to include a partial facetectomy. The flavum ligament was opened and resected with a #3 Kerrison to decompress the underlying thecal sac. The flavum ligament was removed to decompress the lateral recess and the exiting L4 nerve root. The patient was turned contralaterally. The spinous process undercut and this way I was able to decompress the contralateral side by removing more flavum ligament. A long nerve hook could be easily passed along the medial side of the pedicles as a sign of adequate decompression. Then attention was turned to the L4-5 level. A left L4-5 laminotomy was done. The flavum ligament was opened and resected. The laminotomy was extended laterally, including a partial facetectomy. The L5 nerve root was identified and decompressed over his trajectory. The spinous process was undercut and in this way I was able to remove more flavum ligament contralaterally. The microscope was removed. Hemostasis was done. The physician malt specifications control assistant close the Incision in 2 layers. Steri-Strips were used to approximate incision. An OpSite with Tegaderm was used to cover the incision. All sponge needle counts were correct. Patient was extubated and transported in stable is to recovery room. Anesthesia: General Estimated Blood Loss (ml): 40 Complications: None Duration of Surgery: 60 Minutes Postoperative Plan: Discharge to home
--- NOTE | 2025-03-11 14:30 | P.DS_ITS ---
DS: Providers Provider Date of Service: 03/11/25 Date of discharge: 03/11/25 Primary care physician: PRIMO Sanchez DS: Summary Time Attestation Discharge Coordination Time (in mins): 15 Quality: Safe Use of Opioids Does Pt have an Active Cancer Diagnosis on the Problem List?: No Quality: Stroke Does the patient have a stroke diagnosis?: No Physical Exam Vital Signs: Vital Signs: Last Vital Signs Temp 98.5 F 03/11/25 11:04 Pulse 81 03/11/25 11:04 Resp 16 03/11/25 11:04 BP 155/92 H 03/11/25 11:04 Pulse Ox 95 03/11/25 11:04 O2 Del Method Room Air 03/11/25 11:04 BMI result Body Mass Index 32.3 Discharge Plan Discharge Patient Disposition: Home, Self-Care Referrals: Manohar Zaragoza PA [Primary Care Provider, Internal Medicine] - 1 Week Discharge Medications: New hydrocodone-acetaminophen 5-325 mg tablet 1 tab PO Q6H PRN (Reason: pain) Qty: 20 0RF Rx Instructions: Partial Fill upon patient request. Continued amoxicillin 500 mg tablet 2,000 mg PO ONCE glucosamine-chondroitin 250-200 mg Tablet 1 tab PO DAILY Rx Instructions: give after food/meal cholecalciferol (vitamin D3) 25 mcg (1,000 unit) Tablet 25 mcg PO DAILY Centrum Silver Men [id number] mcg Tablet 1 tab PO DAILY losartan 50 mg tablet 50 mg PO QPM allopurinol 300 mg tablet 300 mg PO DAILY albuterol sulfate 90 mcg/actuation HFA aerosol inhaler 2 inh inhalation QID PRN (Reason: Shortness Of Breath Or Wheezing) atorvastatin 20 mg tablet 20 mg PO DAILY Held aspirin 81 mg Tablet,Delayed Release (Dr/Ec) 81 mg PO DAILY Hold Instructions: Resume on 03/14/25. indomethacin 50 mg capsule 50 mg PO TID PRN (Reason: Outbreak) Hold Instructions: Resume on 03/12/25. Discharge Orders: Discharge Order (Routine); Ordered 03/11/25 Ordered By: Zackary Joseph Diet: Advance to usual diet Activity on Discharge: As tolerated Activity Restrictions/Additional Instructions: After your spinal surgery we ask you to observe the following restrictions/guidelines: Activity: It is normal to feel some discomfort as you increase your activity, but that will improve with time. We ask you avoid heavy lifting or acitivities that cause pain. As a general rule, 8lbs is a safe limit for lifting right after surgery. Walk as much as you feel comfortable but not to exhaustion. You will feel extra tired the first few days after surgery. Stay well hydrated. It is OK to walk up and down stairs You may return to driving when you are off narcotics (such as vicodin, oxycodone, dilaudid, etc), and you are back to normal functional capacity. If you have any concerns please check with office before driving. Return to work is specific to each patient and each surgery, so please speak with your doctor/PA at first follow up. Please bring paperwork such as FMLA at that time if you need it filled out. Medications: We recommend you take 1,000mg Tylenol every 8 hours for the first few weeks after surgery, if you do not have any liver issues and can tolerate this medication. Do not exceed 4,000mg daily. We will give you a short supply of narcotics after surgery (usually one weeks worth). If you need more please call the office but do not use more than prescribed. You will need to give our office 48 hours notice if you need narcotics refilled and we do not fill narcotics on weekends or evenings. If you are on a narcotic, it is a good idea to take a stool softener such as col juanita or senna to avoid constipation If you take blood thinner such as aspirin, Plavix, Coumadin, Effient, Eliquis etc for conditions such as Afib, DVT, Pulmonary embolus, coronary disease, stents etc please speak with your surgeon about specific details as to when you can resume these medications. You can resume NSAIDs on post op day 1 (eg: Motrin, Naproxen, etc). Follow up: Please call the office, , after surgery to arrange a 3 week follow up for wound check. Wound Care: You may remove your dressing on the first day after surgery. ?You may ?leave open to air. Please do not remove the steri strips underneath. they will fall off on their own in one week. IT IS NORMAL FOR THE WOUND TO OOZE OR BE BLOODY FOR A FEW DAYS AFTER SURGERY. ?IF THIS HAPPENS JUST PLACE NEW DRESSING OVER IT TO AVOID STAINING CLOTHES. You may shower on post op day # 1 We ask that you do not let the water soak the wound. If it does get wet, just towel dry lightly. Please do not scrub your incision or place any type of chemical/ointment on the wound. No tub baths, pools or jacuzzis for one month. If you have any leaking or redness from your wound, or fevers, please call the office. Print Language: Khmer
== END 2025-03-11 16:31 | disposition home or self-care (01) ==
PROVIDERS: PCP Physician Assistant Medical; Visit Provider Neurological Surgery
PROC: (CPT 63047; principal; 2025-03-11 13:30)
DX: M48.062 Spinal stenosis, lumbar region with neurogenic claudication (principal); M54.50 Low back pain, unspecified; M79.605 Pain in left leg; M25.552 Pain in left hip; R53.1 Weakness; R26.81 Unsteadiness on feet; I10 Essential (primary) hypertension; I71.20 Thoracic aortic aneurysm, without rupture, unspecified; Z96.653 Presence of artificial knee joint, bilateral; Z79.899 Other long term (current) drug therapy
CPT/HCPCS: 63047; 63048; J0131; J0690; J1100; J1885; J2405; J2704; J3010

== ENCOUNTER → 2025-03-11 10:02 | Outpatient (BNV) | payer MEDICARE, SELFPAY | PROVIDERS: PCP Physician Assistant Medical; Visit Provider Neurological Surgery | DX: M48.062 Spinal stenosis, lumbar region with neurogenic claudication (principal) | CPT/HCPCS: 63047; 63048; 99499 ==

== ENCOUNTER 2025-04-01 11:21 | Outpatient (AMB) | payer MEDICARE, SELFPAY ==
--- NOTE | 2025-04-01 11:25 | A.SPINEOV_ITS ---
Intake Visit Reasons: 1st post op Intake Note: Mr. Meraz is here today for his 1st post op. Gsa Coordinator Required: No Allergies No Known Allergies Allergy (Verified 03/11/25 10:28) Assessment & Plan Assessment & Plan (1) Lumbar stenosis with neurogenic claudication: Code(s): M48.062 - Spinal stenosis, lumbar region with neurogenic claudication Category: Medical Plan Procedure: L3-4, L4-5 Laminotomy, Partial facetectomy and foraminotomy Rio is a pleasant 79 year old male who comes in today for his 1st postoperative visit after having the above-mentioned procedure completed by Dr. Ritchie a few weeks ago. He reports that overall he has been healing very well since his surgery. He did have some continued bleeding from the incision site for the 1st couple of days after surgery, but this also resolved. He has been able to walk much better than he could prior to surgery, and recently went to a swap meet and was able to walk around the area without much issue. His leg pain is resolving and continues to get better day by day unfortunately he has a hydrocele in his scrotum, which has been giving him quite a bit of pain. He states that they did attempt to aspirate it prior to his surgery, but it filled back up rather quickly. They are still working him up for this issue. He asked several questions regarding the postoperative healing course, all of which I answered to the best of my ability. No new neurological deficits. The patient ambulates well and rises from a seated position without difficulty. His posterior incision site is closed and well healing. I would like to follow up with Rio again in 6 weeks to ensure that he continues to heal well from his surgery. Zackary Ritchie MD,PhD [facility] Coding Level of Care Code Global (28505) Diagnoses Lumbar stenosis with neurogenic claudication M48.062
--- OUTSIDE RECORDS SUMMARY | 2025-04-01 14:14 | XMS_ITS | Clinical Summary ---
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
== END 2025-04-01 11:47 | disposition home or self-care (01) ==
LOC: HO.HNS 11:22
PROVIDERS: PCP Physician Assistant Medical; Visit Provider Physician Assistant
DX: M48.062 Spinal stenosis, lumbar region with neurogenic claudication (principal)
CPT/HCPCS: 99024

== ENCOUNTER → 2025-04-01 11:21 | Outpatient (BNVA) | payer MEDICARE, SELFPAY | PROVIDERS: PCP Physician Assistant Medical; Visit Provider Physician Assistant | DX: Z47.89 Encounter for other orthopedic aftercare (principal); M48.062 Spinal stenosis, lumbar region with neurogenic claudication | CPT/HCPCS: 99212 ==